=== PATIENT | male | born 1960 | race Caucasian/White ===

== ENCOUNTER 2016-08-07 13:04 | Emergency (ER) | payer BC ==
[2016-08-07 13:30] VITALS: BP 154/103
--- NOTE | 2016-08-07 14:08 | UC ---
Respiratory Complaint HPI - HPI Summary HPI Summary: Cough and chest congestion starting 3 days ago. Fever up to 101F and chills started yesterday, out of work yesterday and today. Has pain in front of chest and in head when he coughs. Some wheezing. - History of Current Complaint Chief Complaint: UCRespiratory Stated Complaint: COUGH,CONGESTION,FEVER Time Seen by Provider: 08/07/16 13:33 Hx Obtained From: Patient Onset/Duration: Gradual Onset, Lasting Days Timing: Constant Severity Initially: Mild Severity Currently: Moderate Character: Cough: Nonproductive Aggravating Factors: Deep Breaths Alleviating Factors: Nothing Associated Signs And Symptoms: Positive: Fever, Chills, Wheezing - Allergies/Home Medications Allergies/Adverse Reactions: Allergies Allergy/AdvReac Type Severity Reaction Status Date / Time Ciprofloxacin [From Cipro] Allergy Mild See Comment Verified 08/07/16 13:30 Metronidazole [From Flagyl] Allergy Mild See Comment Verified 08/07/16 13:30 Sulfa Antibiotics Allergy Mild Hives Verified 08/07/16 13:30 iodine dye Allergy Mild Hives Uncoded 08/07/16 13:30 PMH/Surg Hx/FS Hx/Imm Hx Cardiovascular History Of: Reports: Cardiac Disorders - Pulmonary emboli Respiratory History Of: Reports: Asthma - Surgical History Surgical History: Yes Surgery Procedure, Year, and Place: deviated septum,right inguinal hernialeft , foot bone spur and revision - Family History Known Family History: Positive: Hypertension - Social History Occupation: Employed Full-time Alcohol Use: Rare Alcohol Amount: 1-2 beers Substance Use Type: None Smoking Status (MU): Never Smoked Tobacco Have You Smoked in the Last Year: No Review of Systems Constitutional: Fever, Chills, Fatigue Skin: Negative Eyes: Negative ENT: Negative Respiratory: Cough Cardiovascular: Negative Gastrointestinal: Negative Genitourinary: Negative Motor: Negative Neurovascular: Negative Musculoskeletal: Negative Neurological: Negative Psychological: Negative All Other Systems Reviewed And Are Negative: Yes Physical Exam Triage Information Reviewed: Yes Appearance: Well-Appearing, No Pain Distress, Well-Nourished Vital Signs: Initial Vital Signs Temp 97.9 F 08/07/16 13:26 Pulse 107 08/07/16 13:26 Resp 22 08/07/16 13:26 BP 154/103 08/07/16 13:26 Pulse Ox 100 08/07/16 13:26 Vital Signs Reviewed: Yes Eye Exam: Normal Eyes: Positive: Conjunctiva Clear ENT: Positive: Normal ENT inspection, Hearing grossly normal, Pharynx normal, Nasal congestion, TMs normal - with fluid behind TMs. Negative: Tonsillar swelling, Tonsillar exudate Dental Exam: Normal Neck exam: Normal Neck: Positive: Supple, Nontender, No Lymphadenopathy Respiratory Exam: Normal Respiratory: Positive: Chest non-tender, Lungs clear, Normal breath sounds, No respiratory distress, No accessory muscle use Cardiovascular: Positive: No Murmur, Tachycardia Musculoskeletal Exam: Normal Neurological Exam: Normal Psychological Exam: Normal Skin Exam: Normal UC Diagnostic Evaluation - Laboratory O2 Sat by Pulse Oximetry: 100 Respiratory Course/Dx - Differential Dx/Diagnosis Provider Diagnoses: acute bronchitis Discharge - Discharge Plan Condition: Stable Disposition: HOME Prescriptions: Albuterol HFA INHALER* [Ventolin HFA Inhaler*] 1 - 2 puff INH Q4H PRN #1 mdi PRN Reason: wheeze, cough Guaifenesin-Codeine [Guaiatussin AC] 5 - 10 ml PO Q6H #240 ml MDD 40mL Patient Education Materials: Acute Bronchitis (ED) Forms: *Work Release Referrals: Roshni Romero MD [Primary Care Provider] - If Needed Additional Instructions: We used to think antibiotics were necessary to treat bronchitis, but studies have shown that respiratory viruses cause the disease in the vast majority of cases. Like head colds, most cases of bronchitis get better without antibiotics. We may prescribe antibiotics if we believe bacteria are damaging your airways, or if there's high risk the bronchitis will worsen into pneumonia (such as for individuals with emphysema or other lung disease). Increase your fluid intake. A cool mist humidifier may make your lungs more comfortable. An expectorant (cough medicine that loosens phlegm) can help. If you smoke, STOP!!! Recovery from bronchitis can be somewhat slow, but you should not have any significant worsening or new fevers. As long as you can breathe easily and you continue to have steady improvement, it is not important how many days it takes you to get better. Call or return if you develop increasing fever, shortness of breath, chest pain , bloody sputum, or otherwise worsen. If you have not improved at all after several days, contact your primary care physician or return here. INHALED BRONCHODILATORS: You have received a prescription for an inhaled bronchodilator -- a medication which stimulates the airways in the lung to dilate. This improves the flow of air in asthma, bronchitis, and emphysema. These medicines have some similarity to adrenaline, and can cause similar side effects: shakiness, racing heart, and a sense of nervousness. These side effects can be reduced with the use of a spacer and usually decrease with time. Use 1-2 puffs up to every 4 hours as needed for wheezing or tightness in your chest. It may be helpful to use preventatively, such as before bedtime or before going outside into cold air. IF YOU FIND THAT YOU ARE CONSISTENTLY NEEDING THE INHALER MORE THAN 6 TIMES PER DAY, PLEASE CALL OR RETURN FOR FURTHER EVALUATION. COUGH-SUPPRESSANT & EXPECTORANT MEDICATION FOR SLEEPING ONLY: You are to use a cough medication as needed for relief of NIGHTTIME/ BEDTIME symptoms. This medicine is a combination of an expectorant (to make the mucous thinner and more easily "coughed up") and a cough suppressant (to reduce the frequency of coughing). The cough-suppressant medicine is related to narcotics. You may experience mild nausea and sleepiness. Some patients who are very sensitive to narcotics may have stomach pain from this medicine. Taking the medicine with food reduces these side effects. Do not drive or work with machinery until you know how this medicine affects you. The expectorant should have no side effects. Call your doctor if you develop shortness of breath, hives, rash, itching, lightheadedness, or severe nausea and vomiting.
--- NOTE | 2016-08-07 14:39 | RAD ---
HISTORY: Cough fever COMPARISONS: May 04, 2014 VIEWS: 2: Frontal dual-energy and lateral views of the chest. FINDINGS: CARDIOMEDIASTINAL SILHOUETTE: The cardiomediastinal silhouette is normal. AUSTIN: The austin are normal. PLEURA: The costophrenic angles are sharp. No pleural abnormalities are noted. LUNG PARENCHYMA: The lungs are clear. ABDOMEN: The upper abdomen is clear. There is no subphrenic gas. BONES AND SOFT TISSUES: No bone or soft tissue abnormalities are noted. OTHER: None. IMPRESSION: NO ACTIVE CARDIOPULMONARY DISEASE.
== END 2016-08-07 14:53 | disposition home or self-care (01) ==
LOC: UCEAST 13:04
DX: J20.9 Acute bronchitis, unspecified (principal); Z86.711 Personal history of pulmonary embolism; Z87.09 Personal history of other diseases of the respiratory system; Z88.1 Allergy status to other antibiotic agents
CPT/HCPCS: 71020; 87502; 99212; G0463

== ENCOUNTER 2016-08-17 10:16 | Emergency (ER) | payer BC ==
--- NOTE | 2016-08-17 10:44 | ED ---
Abdominal Pain/Male - HPI Summary HPI Summary: Patient presents for delayed evaluation of left upper abdominal pain. Feels similar to previous episodes of diverticulitis based on character, but less severe. The pain is sharp/cramping and crescendo throughout the day. Not food related. Resolves about an hour after lying down for bedtime. His GI doctor, Dr. Townsend, prescribed both flagyl and cipro 7 days ago without relief. Also taken docusate and senna without relief. Has had several hard pellet like stools, after using both medications. Had two fevers of 101F before starting antibiotics, but none since. Denies recent sick contacts, new or bad foods, cough/congestion, systemic symptoms. No specific aggrav factors. - History of Current Complaint Chief Complaint: EDAbdPain Stated Complaint: UPPER LT ABD PAIN Time Seen by Provider: 08/17/16 10:29 Hx Obtained From: Patient Onset/Duration: Gradual Onset, Lasting Weeks, Still Present Timing: Intermittent Severity Initially: Moderate Severity Currently: None Pain Intensity: 3 Location: Discrete At: LLQ Radiates: No Character: Cramping Aggravating Factor(s): Nothing Alleviating Factor(s): Nothing Associated Signs And Symptoms: Positive: Constipation. Negative: Diaphoresis, Fever, Blood in Stool, Urinary Symptoms, Decreased Appetite, Nausea, Vomiting, Diarrhea - Risk Factors Testicular Torsion: Negative Cardiac Risk Factors: Negative - Allergies/Home Medications Allergies/Adverse Reactions: Allergies Allergy/AdvReac Type Severity Reaction Status Date / Time Iodixanol [From Visipaque] Allergy Severe Swelling Verified 08/17/16 13:18 Of Face,Lips,& Throat Sulfa Antibiotics Allergy Mild Hives Verified 08/17/16 10:28 iodine dye Allergy Mild Hives Uncoded 08/17/16 10:28 PMH/Surg Hx/FS Hx/Imm Hx Respiratory History: Reports: Hx Asthma - Surgical History Surgery Procedure, Year, and Place: deviated septum,right inguinal hernialeft , foot bone spur and revision Infectious Disease History: No Infectious Disease History: Reports: Hx of Known/Suspected MRSA - left elbow Denies: Hx Clostridium Difficile, Hx Hepatitis, Hx Shingles, Hx Tuberculosis , Hx Known/Suspected VRE, Hx Known/Suspected VRSA, History Other Infectious Disease, Traveled Outside the [place] in Last 30 Days - Family History Known Family History: Positive: Hypertension - Social History Alcohol Use: Rare Alcohol Amount: 1-2 beers Substance Use Type: Reports: None Smoking Status (MU): Never Smoked Tobacco Have You Smoked in the Last Year: No Review of Systems Constitutional: Negative Negative: Fever, Chills Cardiovascular: Negative Negative: Chest Pain Respiratory: Negative Negative: Shortness Of Breath Positive: Abdominal Pain. Negative: Vomiting, Diarrhea, Nausea Genitourinary: Negative Positive: no symptoms reported Skin: Negative All Other Systems Reviewed And Are Negative: Yes Physical Exam Triage Information Reviewed: Yes Vital Signs On Initial Exam: Initial Vitals Temp Pulse Resp BP Pulse Ox 98.6 F 86 15 157/117 100 08/17/16 10:18 08/17/16 10:18 08/17/16 10:18 08/17/16 10:18 08/17/16 10:18 Vital Signs Reviewed: Yes Appearance: Positive: Well-Appearing, No Pain Distress, Well-Nourished. Negative: Ill-Appearing Skin: Positive: Warm, Skin Color Reflects Adequate Perfusion, Dry Head/Face: Positive: Normal Head/Face Inspection Eyes: Positive: Normal ENT: Positive: Normal ENT inspection Respiratory/Lung Sounds: Positive: Clear to Auscultation, Breath Sounds Present Cardiovascular: Positive: Normal, RRR, Pulses are Symmetrical in both Upper and Lower Extremities Abdomen Description: Positive: Soft, Guarding, Other: - Diffuse ttp. No rebound or guarding.. Negative: CVA Tenderness (R), CVA Tenderness (L) Bowel Sounds: Positive: Hypoactive Musculoskeletal: Positive: Normal, Strength/ROM Intact Neurological: Positive: Normal, Sensory/Motor Intact, Alert, Oriented to Person Place, Time, CN Intact II-III Diagnostics - Vital Signs Vital Signs Temp Pulse Resp BP Pulse Ox 08/17/16 10:18 98.6 F 86 15 157/117 100 - Laboratory Result Diagrams: 08/17/16 10:58 08/17/16 10:58 Lab Statement: Any lab studies that have been ordered have been reviewed, and results considered in the medical decision making process. Abdominal Pain Fem Course/Dx - Diagnoses Differential Diagnosis/HQI/PQRI: Constipation, Diverticulitis, Other - Primary concern for constipation from the recent codeine with tessalon perles vs atypical diverticulitis since milder than previous diverticulitis and site of pain. 13:44p Case discussed with Dr. Keyon Ornelas, patient's GI physician, who after reviewing the CT and labwork agreed with the plan of care and PCP and GI FU. Provider Diagnoses: Abdominal pain Discharge - Discharge Plan Condition: Good Disposition: HOME Prescriptions: Dicyclomine CAP* [Bentyl CAP*] 10 mg PO TID PRN #10 cap MDD 4 PRN Reason: Abdominal Cramping Ondansetron TAB* [Zofran Tab*] 4 mg PO Q6H PRN #10 tab PRN Reason: Nausea Patient Education Materials: Abdominal Pain (ED) Referrals: Roshni Romero MD [Primary Care Provider] - If Needed Nura Ornelas MD [Medical Doctor] - If Needed
[2016-08-17 11:16] LABS: Hematocrit 42 % (42-52); Hemoglobin 13.8 g/dl (14.0-18.0); Mean Corpuscular HGB Conc 33 g/dl (31-36); Mean Corpuscular Hemoglobin 27 pg (27-31); Mean Corpuscular Volume 83 fL (80-94); Mean Platelet Volume 8 um3 (7.4-10.4); Red Blood Count 5.05 10^6/ul (4.0-5.4); Red Cell Distribution Width 15 % (10.5-15); White Blood Count 8.1 10^3/ul (3.5-10.8)
[2016-08-17 11:20] LABS: Urine Bacteria Absent (Absent); Urine Bilirubin Negative (Negative); Urine Glucose Negative (Negative); Urine Nitrite Negative (Negative)
[2016-08-17 11:27] LABS: Albumin 4.5 g/dL (3.2-5.2); BUN/Creatinine Ratio 10.3 (8-20); Calcium 9.5 mg/dL (8.6-10.3); EGFR African American 76.4 (>60); EGFR Non-African American 59.4 (>60); Potassium 3.9 mmol/L (3.5-5.0); Total Bilirubin 0.6 mg/dL (0.2-1.0); Total Protein 7.5 g/dL (6.4-8.9)
[2016-08-17] MEDS ORDERED: Iodixanol* (CONTRAST) 320 MG/ML 100 ML SDV IV ONE (11:52)
[2016-08-17] MEDS ORDERED: methylPREDNISolone 125 MG* 2 ML VIAL ONE (12:19)
[2016-08-17] MEDS ORDERED: diPHENhydraMINE IV* 50 MG/ML 1 ml VIAL (BENADRYL) ONE (12:19)
[2016-08-17] MEDS ORDERED: methylPREDNISolone 125 MG* 2 ML VIAL IV ONE (12:24)
[2016-08-17] MEDS ORDERED: diPHENhydraMINE IV* 50 MG/ML 1 ml VIAL (BENADRYL) IV ONE (12:24)
--- NOTE | 2016-08-17 12:57 | RAD ---
CLINICAL HISTORY: Abdominal pain COMPARISON: July 06, 2015 TECHNIQUE: Multiple contiguous axial CT scans were obtained of the abdomen and pelvis after the administration of intravenous contrast. Coronal and sagittal multiplanar reformations are submitted for review. Oral contrast was not administered. Delayed images were obtained through the abdomen FINDINGS: LUNG BASES: The lung bases are clear. LIVER: There are several low-attenuation hepatic parenchymal lesions consistent with hepatic cysts, stable from the previous examination. BILE DUCTS: There is no intrahepatic or extrahepatic biliary dilatation. GALLBLADDER: The gallbladder is normal, without pericholecystic inflammatory change. PANCREAS: The pancreas is normal, without mass or ductal dilatation. SPLEEN: Normal in size and appearance. UPPER GI TRACT: Evaluation of the gastrointestinal tract is limited by incomplete gastric distention. The upper GI tract is unremarkable. SMALL BOWEL AND MESENTERY: The small bowel is normal in contour, course, and caliber. There is no obstruction or dilatation. COLON: There are multiple diverticula of the descending and sigmoid colon. There is no pericolonic inflammatory change. ADRENALS: Normal bilaterally. KIDNEYS: The kidneys are normal in shape, size, contour, and axis. There is no hydronephrosis or nephrolithiasis. BLADDER: The bladder is smooth in contour. PELVIC ORGANS: The prostate is diffusely enlarged. The seminal vesicles are symmetric. AORTA: The aorta is normal. IVC: Unremarkable LYMPH NODES: There is no lymphadenopathy by size criteria. ABDOMINAL WALL: There is no evidence for abdominal wall hernia. BONES AND SOFT TISSUES: Degenerative changes are noted along the spine OTHER: None IMPRESSION: 1. DIVERTICULOSIS WITHOUT SIGNIFICANT PERICOLONIC INFLAMMATORY CHANGE TO SUGGEST ACUTE DIVERTICULITIS. 2. ENLARGED PROSTATE.
[2016-08-17 14:01] VITALS: BP 150/84
== END 2016-08-17 14:01 | disposition home or self-care (01) ==
LOC: ED 10:16
DX: R10.12 Left upper quadrant pain (principal); K57.90 Diverticulosis of intestine, part unspecified, without perforation or abscess without bleeding
CPT/HCPCS: 36415; 74177; 80053; 81003; 81015; 83690; 85025; 87086; 96374; 96375; 99283; J1200; J2930; Q9967

== ENCOUNTER 2016-11-15 11:14 | Day surgery (SDC) | payer BC ==
[~2016-11-15 11:14] MED LIST: Buffered Lidocaine 1% SYRIN* 3 ML/SYR SYRINGE INTRADERM ONE
[2016-11-15] MEDS ORDERED: fentaNYL* 50 MCG/ML 2 ML VIAL (100 MCG VIAL) ONE (13:18)
[2016-11-15] MEDS ORDERED: Midazolam* 1 MG/ML 2 ML VIAL (2 MG) ONE (13:18)
[2016-11-15] MEDS ORDERED: Famotidine IV* 10 MG/ML 2 ML (20 mg) ONE (13:19)
[2016-11-15] MEDS ORDERED: Dexamethasone IV* 4 MG/ML 1 ML (4 MG) ONE (13:19)
[2016-11-15] MEDS ORDERED: Propofol* 10 MG/ML 20 ML BTL IV PUSH ONE ×2 (13:19→14:01)
[2016-11-15] MEDS ORDERED: KETAMINE HCL* 50 MG/ML 10 ML VIAL ONE (13:19)
[2016-11-15] MEDS ORDERED: Lidocaine 2% PF * 5 ML VIAL ONE (13:19)
[2016-11-15] MEDS ORDERED: diPHENhydraMINE IV* 50 MG/ML 1 ml VIAL (BENADRYL) ONE (13:34)
[2016-11-15 15:11] VITALS: BP 145/99
--- NOTE | 2016-11-16 03:52 | PRO ---
DATE OF PROCEDURE: 11/15/16 [facility] PROCEDURE: Colonoscopy with biopsies. MEDICINES USED: IV propofol provided by Anesthesiology. NARRATIVE: Mr. Land is a 55-year-old gentleman who, about 3 years ago, had a colonoscopy where a polyp was removed. He was instructed to come back in this timeframe. DESCRIPTION OF PROCEDURE: After the procedure was discussed with the patient, risks and benefits were outlined, written consent was obtained. The patient was placed in the left lateral decubitus position and a rectal exam was performed. The rectal exam was normal without any palpable abnormality. At that point, colonoscopy was carried out. A video adult flexible colonoscope was inserted anally and advanced very carefully into the cecum. The cecum was identified by the appendiceal orifice and the ileocecal valve. The quality of the prep overall was fair to good. There was some murky fluid and particulate material seen throughout the colon; but I do believe, with extensive irrigation and suctioning, views were good. The patient tolerated the procedure well and there were no immediate complications. FINDINGS: Colonoscopy into the cecum was successful. At that level, the colonoscope was slowly withdrawn and careful inspection was carried out. A total of 4 small polyps were identified, there were 3 in the hepatic flexure region and 1 in the transverse colon, they were all removed with the jumbo biopsy forceps. Additionally, sigmoid diverticulosis was noted. No other mucosal abnormality was detected. The submucosal vascular pattern was normal. The rectum was viewed both in the forward view and retroflex manner and was normal. CONCLUSION: Four small polyps (removed), sigmoid diverticulosis; otherwise, normal colonoscopy into the cecum. RECOMMENDATION: I will certainly review the biopsy results of these small polyps. I would recommend a followup colonoscopy in 5 years. CC: Dulec Tobin MD* [id number]/[facility] #: [id number] [facility]
== END 2016-11-15 15:20 | disposition home or self-care (01) ==
LOC: OR 11:14
PROVIDERS: ATTEND Internal Medicine Gastroenterology
DX: Z12.11 Encounter for screening for malignant neoplasm of colon (principal); D12.3 Benign neoplasm of transverse colon; J45.909 Unspecified asthma, uncomplicated
CPT/HCPCS: 36415; 86703; 86803; 88305; J1100; J1200; J2250; J2704; J3010

== ENCOUNTER 2017-07-20 12:03 | Emergency (ER) | payer BC ==
[2017-07-20 12:10] VITALS: BP 180/95
[2017-07-20] MEDS ORDERED: Aspirin TAB* 325 MG PO ONE (15:43)
[2017-07-20] MEDS ORDERED: Ketorolac INJ* 60 MG/2 ML VIAL IM ONE (15:43)
--- NOTE | 2017-07-20 15:55 | ED ---
Back Pain - HPI Summary HPI Summary: 56 male presents to ED with complaints of lower back pain that began yesterday a few hours after shoveling his driveway. Patient states he has known "bulging discs" that are chronic and have been ongoing for the past couple of years. States he tweaks it every now and then and believes he did yesterday when shoveling. Took aleve and ibuprofen yesterday without relief. Also has been applying a heating pad with little relief. Has had similar symptoms with previous episodes. Admits to some tingling in left leg. Able to walk and bear weight although it exacerbates pain Admits to having spasms in his back when using legs at times. Denies bladder/bowel incontinence, saddle anesthesia and weakness. No other complaints. No abdominal pain or urinary complaints. No other known injuries. PMHx significant for IBS and intermittent GERD. Pain is worsened with movement/bending and use of lower extremities. - History of Current Complaint Chief Complaint: EDBackInjuryPain Stated Complaint: BACK Time Seen by Provider: 07/20/17 13:08 Hx Obtained From: Patient Onset/Duration: Sudden Onset, Lasting Days - 1, Still Present, Worse Since Onset/Duration: Started Days Ago - yesterday, Traumatic, Still Present Timing: Constant Back Pain Location: Is Discrete @ - lower lumbar spine Severity Initially: Moderate Severity Currently: Severe Pain Intensity: 10 Pain Scale Used: 0-10 Numeric Character: Sharp, Aching, Spasmodic Aggravating Symptom(s): Movement, Lifting, Bending, Walking Alleviating Symptom(s): Rest, Position, Heat, Nothing Associated Signs And Symptoms: Positive: Numbness, Tingling - left, Pain with Weight Bearing. Negative: Swelling, Redness, Bruising, Fever, Weakness, Abdominal Pain, Bladder Incontinence, Bowel Incontinence - Risk Factors AAA Risk Factors: Negative TAD Risk Factors: Negative Cauda Equina Risk Factors: Negative Epidural Abscess Risk Factors: Negative - Allergies/Home Medications Allergies/Adverse Reactions: Allergies Allergy/AdvReac Type Severity Reaction Status Date / Time Iodixanol [From Visipaque] Allergy Severe Swelling Verified 11/15/16 11:32 Of Face,Lips,& Throat.anaphylactic Sulfa Antibiotics Allergy Mild Hives Verified 11/15/16 11:32 Shellfish Allergy Allergy anaphylacti Verified 11/15/16 11:32 c iodine dye Allergy Severe Hives, Uncoded 11/15/16 11:32 anaphylactic PMH/Surg Hx/FS Hx/Imm Hx Endocrine/Hematology History: Denies: Hx Diabetes Cardiovascular History: Denies: Hx Hypertension Respiratory History: Reports: Hx Asthma - A CHILD X 1 ATTACK-NONE SINCE, Hx Pulmonary Embolism - AND DVT IN 2009 GI History: Reports: Hx Gastroesophageal Reflux Disease - ON MEDICATION FOR, Hx Irritable Bowel, Other GI Disorders - DIVERTICULOSIS History: Denies: Hx Renal Disease Musculoskeletal History: Reports: Hx Bursitis - LEFT HIP, Hx Tendonitis - KNEES Sensory History: Reports: Hx Contacts or Glasses - GLASSES Denies: Hx Hearing Aid Opthamlomology History: Reports: Hx Contacts or Glasses - GLASSES Psychiatric History: Reports: Hx Depression - NO MEDICATION FOR AT THIS TIME - Surgical History Surgery Procedure, Year, and Place: deviated septum,right inguinal hernia. left foot bone spur and revision. ENDOSCOPIES AND COLONOSCOPY Hx Anesthesia Reactions: No - Immunization History Immunizations Up to Date: Yes Infectious Disease History: No Infectious Disease History: Reports: Hx of Known/Suspected MRSA - left elbow Denies: Hx Clostridium Difficile, Hx Hepatitis, Hx Shingles, Hx Tuberculosis , Hx Known/Suspected VRE, Hx Known/Suspected VRSA, History Other Infectious Disease, Traveled Outside the [place] in Last 30 Days - Family History Known Family History: Positive: Hypertension - Social History Alcohol Use: Weekly Alcohol Amount: 1 beer Substance Use Type: Reports: None Smoking Status (MU): Never Smoked Tobacco Have You Smoked in the Last Year: No Review of Systems Constitutional: Negative Cardiovascular: Negative Respiratory: Negative Gastrointestinal: Negative Genitourinary: Negative Positive: Arthralgia, Myalgia, Decreased ROM - low back Skin: Negative Positive: Paresthesia - left LE All Other Systems Reviewed And Are Negative: Yes Physical Exam Triage Information Reviewed: Yes Vital Signs On Initial Exam: Initial Vitals Temp Pulse Resp BP Pulse Ox 97.7 F 72 16 180/95 100 07/20/17 12:05 07/20/17 12:05 07/20/17 12:05 07/20/17 12:05 07/20/17 12:05 Vital Signs Reviewed: Yes Appearance: Positive: Well-Appearing, Well-Nourished, Pain Distress - moderate- severe Skin: Positive: Warm, Skin Color Reflects Adequate Perfusion, Dry. Negative: Cold, Numb, Erythema @ Eyes: Positive: Normal ENT: Positive: Hearing grossly normal Neck: Positive: Supple Respiratory/Lung Sounds: Positive: Clear to Auscultation, Breath Sounds Present. Negative: Rales, Rhonchi, Wheezes Cardiovascular: Positive: Normal, RRR, Pulses are Symmetrical in both Upper and Lower Extremities. Negative: IRR, Murmur Abdomen Description: Positive: Nontender, Soft Bowel Sounds: Positive: Present Musculoskeletal: Positive: Normal, Strength/ROM Intact, Pain @ - on palpation and with movement of L2-L5 no obvious deformity, ecchymosis, erythema or crepitus, Other - normal strength of bilateral LE however, does cause discomfort. Negative: Limited @, Interruption @, Abnormal @ Neurological: Positive: Normal, Sensory/Motor Intact, Alert, Oriented to Person Place, Time, CN Intact II-III, Reflexes Intact, NV Bundle Intact Distally, Normal Gait - hunched over holding lower back - Kushal Coma Scale Coma Scale Total: 15 Diagnostics - Vital Signs Vital Signs Temp Pulse Resp BP Pulse Ox 07/20/17 12:05 97.7 F 72 16 180/95 100 - Laboratory Lab Statement: Any lab studies that have been ordered have been reviewed, and results considered in the medical decision making process. Back Pain Course/Dx - Course Course Of Treatment: No imaging required due to patient having chronic low back issues with an acute injury when shoveling yesterday, appears to have suffered a strain. given toradol while in ED. has not taken any other medication today. Patient was driving home and therefore given muscle relaxer to take at home. being prednisone and naproxen tomorrow. encouraged lidoderm patch and continuing heating pads. stretches, rest and PT. Follow up PCP. Aware of worsening signs and symptoms to watch out for. No imaging appeared necessary at this time due to no trauma concerning bony structures of spine. Normal PE findings. Normal vitals, elevated BP patient in pain and to recheck with PCP in 2 weeks, asymptomatic. - Diagnoses Differential Diagnosis/HQI/PQRI: Positive: Herniated Disc, Strain, Sprain Provider Diagnoses: Lumbosacral strain, Low back pain Discharge - Discharge Plan Condition: Stable Disposition: HOME Prescriptions: Diazepam TAB(*) [Valium TAB(*)] 2 mg PO TID PRN #15 tab MDD 3 PRN Reason: Spasms Naproxen TAB* [Naprosyn 375 mg TAB*] 375 mg PO BID PRN #30 tab PRN Reason: Pain predniSONE TAB* [Deltasone TAB*] 20 mg PO DAILY #3 tab Patient Education Materials: Low Back Strain (ED), Acute Low Back Pain (ED), Lumbar Radiculopathy (ED) Referrals: Dulce Tobin MD [Primary Care Provider] - [facility] [place],PT [Medical Doctor] - Additional Instructions: Take prescribed medication as directed as needed starting tomorrow. You may only take muscle relaxer, valium, today as needed. You may also take tylenol for breakthrough pain today if needed. Do not drive while taking valium. Take naproxen starting tomorrow, with food to avoid upset stomach and GERD. Recommend taking prednisone in the morning to refrain from having trouble sleeping, starting tomorrow. Continue heating pads. Lidoderm patches as needed, sold over the counter. Recommend physical therapy. Any new or worsening symptoms please seek medical attention promptly. Follow up with PCP and have BP rechecked as it was high today, within 2 weeks.
[2017-07-20] MEDS ORDERED: Acetaminophen TAB* 325 MG PO ONE (16:01)
== END 2017-07-20 16:07 | disposition home or self-care (01) ==
LOC: ED 12:03
DX: S39.012A Strain of muscle, fascia and tendon of lower back, initial encounter (principal); X50.0XXA Overexertion from strenuous movement or load, initial encounter; Y93.H1 Activity, digging, shoveling and raking; Y92.89 Other specified places as the place of occurrence of the external cause; Z88.2 Allergy status to sulfonamides
CPT/HCPCS: 96374; 99282; J1885

== ENCOUNTER → 2018-06-02 07:11 | Day surgery (SDC) | payer BC ==
[~2018-06-02 07:11] MED LIST changes: +Buffered Lidocaine 0.9% SYRIN* 5 ML/SYR SYRINGE INTRADERM ONE; +Buffered Lidocaine 0.9% SYRIN* 5 ML/SYR SYRINGE ONE; -Buffered Lidocaine 1% SYRIN* 3 ML/SYR SYRINGE INTRADERM ONE; +Bupivacaine 0.5% SDV PF* 30ML VIAL ONE; +DiMENhydriNATE IV* 50 MG/ML VIAL IV PUSH PRN; +HYDROcodone/ACETAMIN 5-325 MG* 1 TAB PO PRN; +Lidocaine 2% PF * 5 ML VIAL ONE; +Lidocaine 2% PF* 10 ML AMP ONE; +Midazolam* 1 MG/ML 5 ML VIAL (5 MG) ONE; +Morphine VIAL* 10 MG/ML 1 ML VIAL ONE; +Naloxone* 0.4 MG/ML 1 ML VIAL IV PRN; +Ondansetron INJ* 2 MG/ML VIAL ONE; +Propofol* 10 MG/ML 20 ML BTL IV PUSH ONE; +ceFAZolin 2 GM PREMIX in ORs 2 GM/50 ML BAG IVPB ONE; +fentaNYL* 50 MCG/ML 2 ML VIAL (100 MCG VIAL) IV PRN; +fentaNYL* 50 MCG/ML 2 ML VIAL (100 MCG VIAL) ONE; +oxyCODONE TAB* 5 MG TAB PO PRN
[2018-06-02 11:46] VITALS: BP 159/94
--- NOTE | 2018-06-03 09:16 | OP ---
DATE OF OPERATION: 06/02/18 - SDS DATE OF : 60 ATTENDING SURGEON: Claude Nguyen MD PRE-OP DIAGNOSIS: Soft tissue mass, plantar aspect, right great toe. POST-OP DIAGNOSIS: Soft tissue mass, plantar aspect, right great toe; probable ganglion. OPERATIVE PROCEDURE: Excision of mass, right great toe. DESCRIPTION OF PROCEDURE: The patient was taken to the operating room where a local anesthetic was instilled around the great toe. With the ankle Esmarch inflated, I made a V-shaped incision apex medial just to the medial aspect of this plantar rubbery mass. The mass itself was somewhat adherent to the dermis tissue, so I unroofed the mass and there was some blood syrupy fluid inside, it was consistent with a ganglion. I did excise away the more deep half of the mass, which appeared to articulate with the FHL sheath. I irrigated this thoroughly sending what I could of the mass taking care not to invade any of the plantar nerve structures. Closure consisted of a 3-0 Vicryl subcu and an interrupted 4-0 nylon for the skin and a compression dressing applied. [id number]/[facility] #: [id number] [facility]
== END | disposition home or self-care (01) ==
LOC: OR 07:11
PROVIDERS: ATTEND Orthopaedic Surgery
DX: M67.471 Ganglion, right ankle and foot (principal); I10 Essential (primary) hypertension; F41.8 Other specified anxiety disorders; Z86.718 Personal history of other venous thrombosis and embolism
CPT/HCPCS: 88304; J0690; J2001; J2250; J2270; J2405; J2704; J3010

== ENCOUNTER 2018-11-14 08:00 | Inpatient (IN) | payer BC ==
[2018-11-14] MEDS ORDERED: NS 0.9% 1000 ML** 1,000 ML IV ONE ×3 (08:15→08:28)
--- NOTE | 2018-11-14 08:17 | ED ---
Abdominal Pain/Male - HPI Summary HPI Summary: A 57 y/o M who is afebrile presents to ED c/o diffuse suprapubic abd pain onset this AM. His sx began two days ago with excess gas. He feels this is likely diverticulitis which he has had 5-6x previously, with the last episode being 2-3 years ago. Associated sx: bloating, bowel urgency. Denies: n/v, bloody stool. Hes unsure what triggered it. - History of Current Complaint Chief Complaint: EDAbdPain Stated Complaint: POSS DIVERTICULITIS PER PT Time Seen by Provider: 11/14/18 08:02 Hx Obtained From: Patient Onset/Duration: Gradual Onset, Lasting Days, Still Present Timing: Constant Severity Initially: Moderate Severity Currently: Severe Pain Intensity: 8 Pain Scale Used: 0-10 Numeric Location: Suprapubic Character: Cramping Associated Signs And Symptoms: Positive: Other - pos: bloating, gassy. Negative : Blood in Stool, Nausea, Vomiting - Allergies/Home Medications Allergies/Adverse Reactions: Allergies Allergy/AdvReac Type Severity Reaction Status Date / Time iodine Allergy Hives Verified 11/14/18 08:07 shellfish derived Allergy anaphylaxis Verified 11/14/18 08:07 Sulfa (Sulfonamide Allergy Hives Verified 11/14/18 08:07 Antibiotics) contrast dye Allergy Anaphylatic Uncoded 06/02/18 07:40 Shock Home Medications: Home Medications Azelastine HCl [Azelastine Hydrochloride] 0.1 % BOTH NARES BID 11/14/18 [ History Confirmed 11/14/18] Cyclobenzaprine TAB* [Flexeril 10 MG TAB*] 10 mg PO BEDTIME PRN 11/14/18 [ History Confirmed 11/14/18] EPINEPHrine [Epipen] 0.3 mg INJ ONCE PRN 11/14/18 [History Confirmed 11/14/18] Ibuprofen TAB* [Advil TAB*] 600 mg PO TID PRN 11/14/18 [History Confirmed ] Lisinopril TAB* [Prinivil TAB*] 5 mg PO DAILY 11/14/18 [History Confirmed ] Melatonin (NF) 3 mg PO BEDTIME 11/14/18 [History Confirmed 11/14/18] PMH/Surg Hx/FS Hx/Imm Hx Previously Healthy: No Endocrine/Hematology History: Denies: Hx Diabetes Cardiovascular History: Reports: Hx Hypertension - off meds now Denies: Other Cardiovascular Problems/Disorders Respiratory History: Reports: Hx Asthma - A CHILD X 1 ATTACK-NONE SINCE, Hx Pulmonary Embolism - AND DVT IN 2010, after surgery Denies: Other Respiratory Problems/Disorders GI History: Reports: Hx Gastroesophageal Reflux Disease - ON MEDICATION FOR, Hx Irritable Bowel, Other GI Disorders - DIVERTICULOSIS History: Denies: Hx Renal Disease Musculoskeletal History: Reports: Hx Bursitis - LEFT HIP, Hx Tendonitis - KNEES Sensory History: Reports: Hx Contacts or Glasses - GLASSES Denies: Hx Hearing Aid Opthamlomology History: Reports: Hx Contacts or Glasses - GLASSES Neurological History: Denies: Other Neuro Impairments/Disorders Psychiatric History: Reports: Hx Anxiety - meds, Hx Depression - meds - Surgical History Surgery Procedure, Year, and Place: deviated septum,1996. right inguinal hernia , 2000. left foot bone spur and revision, 2009 and 2011. 2017, left knee, [facility] Hx Anesthesia Reactions: No Infectious Disease History: No Infectious Disease History: Reports: Hx of Known/Suspected MRSA - left elbow Denies: Hx Clostridium Difficile, Hx Hepatitis, Hx Shingles, Hx Tuberculosis , Hx Known/Suspected VRE, Hx Known/Suspected VRSA, History Other Infectious Disease, Traveled Outside the [place] in Last 30 Days - Family History Known Family History: Positive: Hypertension, Diabetes Family History: CA, stroke - Social History Occupation: Employed Full-time Lives: With Family Alcohol Use: Weekly Alcohol Amount: 1 beer Hx Substance Use: No Substance Use Type: Reports: None Hx Tobacco Use: No Smoking Status (MU): Never Smoked Tobacco Have You Smoked in the Last Year: No Review of Systems Negative: Fever Positive: Abdominal Pain, Other - pos: bloating, gassy, bowel urgency. neg: bloody stool . Negative: Vomiting, Nausea All Other Systems Reviewed And Are Negative: Yes Physical Exam - Summary Physical Exam Summary: VITAL SIGNS: Reviewed. GENERAL: Patient is a well-developed and nourished male who is lying comfortable in the stretcher. Patient is not in any acute respiratory distress. HEAD AND FACE: Normocephalic and atraumatic. EYES: PERRLA, EOMI x 2, No injected conjunctiva. EARS: Hearing grossly intact. Ear canals and tympanic membranes are WNL. MOUTH: Oropharynx within normal limits. NECK: Supple, trachea is midline, no adenopathy, no JVD. CHEST: Symmetric, no tenderness at palpation LUNGS: Clear to auscultation bilaterally. No wheezing or crackles. CVS: RRR, S1 and S2 present, no murmurs or gallops appreciated. ABDOMEN: Soft. Bilateral lower abd tenderness. No signs of distention. Positive bowel sounds. No rebound, no guarding, and no masses palpated. No abdominal bruit or pulsations. EXTREMITIES: FROM in all major joints, no edema, no cyanosis or clubbing. NEURO: Alert and oriented x 3. No acute neurological deficits. Speech is normal. SKIN: Dry and warm Triage Information Reviewed: Yes Vital Signs On Initial Exam: Initial Vitals Temp Pulse Resp BP Pulse Ox 97.7 F 73 18 89/72 97 11/14/18 08:01 11/14/18 08:01 11/14/18 08:01 11/14/18 08:01 11/14/18 08:01 Vital Signs Reviewed: Yes Diagnostics - Vital Signs Vital Signs Temp Pulse Resp BP Pulse Ox 11/14/18 08:01 97.7 F 73 18 89/72 97 - Laboratory Result Diagrams: 11/14/18 08:40 11/14/18 08:40 Lab Statement: Any lab studies that have been ordered have been reviewed, and results considered in the medical decision making process. - CT A/P CT CT Interpretation Completed By: Radiologist Summary of CT Findings: IMPRESSION: DIVERTICULITIS WITHOUT LOCULATED FLUID COLLECTION TO SUGGEST ABSCESS. ED provider has reviewed this report. - EKG 0820 EKG Rhythm: Atrial Fibrillation - at 146 bpm with RVR. EKG Comparison: Other - Different from EKG on 05/04/2014. Summary of EKG Findings: Atrial fib at 146 bpm with RVR. 0912 EKG Rhythm: Atrial Fibrillation - at 106 bpm Summary of EKG Findings: No ST elevation. 1231 Cardiac Rate: NL - 74 bpm EKG Rhythm: Sinus Rhythm Summary of EKG Findings: No ST elevation. Re-Evaluation - Re-Evaluation 1 Re-Evaluation Time: 08:25 Change: Worse Comment: Rechecked heart, patient has developed irregular rate and rhythm. When questioned, patient reports having intermittent dizziness this AM. Abdominal Pain Male Course/Dx - Course Assessment/Plan: This patient is a 57-year-old male who presents to the emergency department with chief complaint of lower abdominal pain. He reports that he has history of diverticulitis and he presents like is another episode of diverticulitis.,. Pain is 6 out of 10, nonradiating, pressure-like pain. While the patient was in the ED the patient became tachycardic, I reexamined the heart and the patient has a regular rate and rhythm. We did an EKG shows an atrial fibrillation with RVR 146 bpm. Patients blood pressure is 98/62. Therefore, we placed the patient in a desk monitor, we obtained 2 IV accesses , he was given IV fluids boluses. I also order Cardizem due to the atrial fibrillation. Abdomen and pelvic CT impression: Diverticulitis without loculated fluid collection to the digits abscess. After the patient was given Cardizem and the heart rate decreased to about 98 bpm, the patient walked to the bathroom and his heart rate is now between 120-150. Patient was placed in a Cardizem drip. He was also placed in ciprofloxacin and Flagyl. I discuss my physical exam, findings and test results with Dr. Andre from the hospitalist services and he agrees to admit patient to his services. Patient is hemodynamically stable alert and oriented x 3. Dr. Toribio from cardiology came and consulted for the patient and he reports no cardioversion at this time. He recommends admission to the hospital services. - Diagnoses Provider Diagnoses: Diverticulitis, Atrial fibrillation with RVR - Provider Notifications Discussed Care Of Patient With: Kacie Montero - hospitalist Time Discussed With Above Provider: 10:25 Instructed by Provider To: Admit As Inpatient - Recommends consulting with cardiology. Consulted at 1107: Will admit pt, - Critical Care Time Critical Care Time: 75-104 min Discharge - Sign-Out/Discharge Documenting (check all that apply): Patient Departure - ADMIT Patient Received Moderate/Deep Sedation with Procedure: No - Discharge Plan Condition: Stable Disposition: ADMITTED TO [facility] - Billing Disposition and Condition Condition: STABLE Disposition: Admitted to [facility] - Attestation Statements Document Initiated by Scribe: Yes Documenting Scribe: Neo Moise Provider For Whom Scribe is Documenting (Include Credential): Dr. Henrique Garcia MD Scribe Attestation: I, Neo Moise, scribed for Dr. Henrique Garcia MD on 11/14/18 at 1827. Scribe Documentation Reviewed: Yes Provider Attestation: The documentation as recorded by the scribe, Neo Moise accurately reflects the service I personally performed and the decisions made by me, Dr. Henrique Garcia MD Status of Scribe Document: Viewed Consult Consult: 1100: Consulted with Dr. Toribio, cardio Does not recommend cardioversion at this time.
--- OUTSIDE RECORDS SUMMARY | 2018-11-14 08:21 | XMS REPORT | Continuity of Care Document ---
:1960 External Reference #:[id number] Author Name Sushila Buckley Care Team Providers Name Role Phone Dulce Tobin MD Primary Care Physician Unavailable Payers Date Identification Numbers Payment Provider Subscriber Policy Number: [id number] [facility] Jessica Land PayID: [id number] [address] [place] [address] Expires: 2010 Policy Number: [id number] 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 Tobacco Use Start: Unknown Never Smoked Cigarettes Smoking Status Reviewed: 10/24/18 Never Smoked Cigarettes ETOH Use Occasionally consumes 2 drinks per week alcohol Tobacco Use Start: Unknown Patient has never smoked Recreational Drug Use Never Used Drugs Exercise Type/Frequency Exercises regularly walking, limited by back pain Allergies, Adverse Reactions, Alerts Date Description Reaction Status Severity Comments 10/24/2018 Bactrim Active rash 10/24/2018 Iodinated Diagnostic Active respiratory reaction, Agents throat swelling 10/24/2018 Shellfish-derived Active itching Products 05/09/2017 NKDA Inactive Medications Medication Date Status Form Strength Qnty SIG Indications Ordering Provider Omeprazole Active Capsules 40mg 1 by Unknown 00 mouth every day Montelukast 00/00/00 Active Tablets 10mg 1 by Unknown Sodium 00 mouth every day Azelastine HCL Active Solution 137mcg/Sp 1 squirt Unknown (Nasal) 00 ray each nostril once a day Sertraline HCL Active Tablets 100mg 1 tablet Unknown 00 daily Alprazolam Active Tablets 0.25mg 1/2 to 1 Unknown 00 tablet as needed. max dose 1 tablet Cyclobenzaprine Active Tablets 10mg take 1 Unknown HCL 00 tab by mouth 2-3 times a day as needed Hyoscyamine Active Tablets 0.375mg take 1 Unknown Sulfate ER 00 ER 12HR tab by mouth every 12 hours as needed Epipen 2-Nelson Active Solution 0.3mg/0.3 use as Unknown 00 Auto-Inje ML directed ct Melatonin ER Active Tablets 3mg take one Unknown 00 ER tablet/ca psule by mouth at bedtime. for insomnia Ibuprofen Active Tablets 200mg 3 tabs by Unknown 00 mouth 3 times daily as needed for pain Vitamin C Active Capsules 500mg 1 by Unknown 00 mouth every day Naproxen Sodium Active Capsules 220mg 1 tab Unknown 00 twice a day as needed Tylenol Active Capsules 325mg 2 tablets Unknown 00 every 4 hours as needed for pain Oxycodone HCL 06/02/20 Hx Tablets 5mg 10tab 1 tab Claude 18 - s every 4-6 Patrick 06/11/20 hours as M.D. 18 needed for pain mdd 4 Astepro Hx Unknown - 04/21/20 18 Singulair Hx Unknown - 04/21/20 18 Levsin Hx Unknown - 04/21/20 18 Align Hx Capsules 4mg 1 by Unknown 00 - mouth 04/21/20 every day 18 Xanax Hx Unknown 00 - Unknown Lisinopril Hx Tablets 5mg 1 by Unknown 00 - mouth Unknown every day Medications Administered in Office Medication Date Status Form Strength Qnty SIG Indications Ordering Provider Depomedrol Administered Injection Joyce 40MG Fermin KingD. Depomedrol Administered Injection Joyce 40MG 017 Gustavo Lugo Immunizations Description No Information Available Vital Signs Date Vital Result Comment 10/24/2018 9:40am Height 76 inches 6'4" Weight 211.00 lb Heart Rate 95 /min BP Systolic 149 mmHg BP Diastolic 85 mmHg BMI (Body Mass Index) 25.7 kg/m2 07/17/2018 9:49am Height 76 inches 6'4" Weight 198.00 lb BP Systolic 118 mmHg BP Diastolic 78 mmHg Pain Level 3 BMI (Body Mass Index) 24.1 kg/m2 06/26/2018 9:32am Height 76 inches 6'4" Weight 198.00 lb Heart Rate 68 /min BP Systolic 126 mmHg BP Diastolic 74 mmHg Respiratory Rate 12 /min Pain Level 2 BMI (Body Mass Index) 24.1 kg/m2 06/19/2018 8:51am Height 76 inches 6'4" Heart Rate 64 /min BP Systolic 130 mmHg BP Diastolic 90 mmHg Body Temperature 97.2 F Pain Level 0 06/12/2018 8:31am Height 76 inches 6'4" Heart Rate 72 /min BP Systolic 130 mmHg BP Diastolic 88 mmHg Body Temperature 97.4 F Pain Level 0 05/22/2018 8:27am Height 76 inches 6'4" Weight 198.00 lb BP Systolic 142 mmHg BP Diastolic 92 mmHg Respiratory Rate 16 /min Body Temperature 96.1 F Pain Level 0 BMI (Body Mass Index) 24.1 kg/m2 04/22/2018 10:05am Height 76 inches 6'4" Weight 204.00 lb Heart Rate 72 /min BP Systolic 130 mmHg BP Diastolic 74 mmHg Respiratory Rate 18 /min Body Temperature 97.7 F Pain Level 3 BMI (Body Mass Index) 24.8 kg/m2 05/09/2017 9:59am Height 76 inches 6'4" Weight 241.00 lb BP Systolic 130 mmHg BP Diastolic 82 mmHg Body Temperature 96.4 F Pain Level 4 BMI (Body Mass Index) 29.3 kg/m2 12/29/2010 11:31am Height 76 inches 6'4" Weight 220.00 lb Heart Rate 82 /min BP Systolic 134 mmHg BP Diastolic 86 mmHg BMI (Body Mass Index) 26.8 kg/m2 Results Test Date Facility Test Result H/L Range Note Laboratory test 06/02/2018 [facility] Surgical SEE RESULT [address] [place] [address] [phone] 1 SEE RESULT BELOW Name: GORDO LAND Tan : [address]: Claude Nguyen MD Acct: [id number] Unit: [id number] AGE: 57 Location: OR Re06/02/18 SEX: M Status: [place] [facility] [place] SPEC: [id number] LENI: 06/02/18- [facility] DR: Claude Nguyen MD REQ: [id number] RECD: 06/02/18 STATUS: SOUT _ ORDERED: LEVEL 3 FINAL DIAGNOSIS Soft tissue, right foot, excision: -- Ganglion cyst. PRE-OPERATIVE DIAGNOSIS Right foot mass GROSS DESCRIPTION The specimen is received in formalin labeled, Mass Right Foot, and consists of two hernandez-pink irregular fibromembranous tissue fragments with adherent yellow fat measuring 0.7 x 0.6 x 0.3 cm and 1.4 x 0.5 x 0.3 cm which are submitted entirely in one cassette. Signed by and Reported on: Cristhian Leung MD 11/29 1614 END OF REPORT DEPARTMENT OF PATHOLOGY, [address] [place] [address] Cristhian Leung M.D. Director [facility] # [id number] Procedures Date Code Description Status 06/02/2018 29907 Excision Lesion Toes (Cyst/Ganglion) Completed 05/09/2017 14751 Inject Tendon Sheath Or Ligament Aponeurosis Eg Plantar Completed Fascia 05/09/2017 19564 Inject Tendon Sheath Or Ligament Aponeurosis Eg Plantar Completed Fascia 03/02/2014 28162 Polysomnography Sleep Staging 4+ Parameters Completed 04/28/2012 43351 Rad Exam; Foot Comp Completed 04/04/2012 04703 Rad Exam; Foot Comp Completed 04/04/2012 36551 Rad Exam; Foot Limited Completed 04/04/2012 16269 Rad Exam; Ankle Comp Completed 03/14/2012 62879 Short Leg Cast Completed 02/29/2012 73538 Short Leg Cast Completed 02/20/2012 73087 Arthrodesis Midtarsal/Tarsometatarsal Single Completed 02/20/2012 66470 Arthrodesis Midtarsal/Tarsometatarsal Single Completed 02/20/2012 57621 Bone Graft, Any Donor Area Major Or Large Completed 02/20/201205794 Bone Graft, Any Donor Area Major Or Large Completed 01/28/2012 57707 EKG, Interpretation Only Completed 10/08/2011 05913 Rad Exam; Foot Comp Completed 10/08/2011 45918 Rad Exam; Ankle Limited Completed 12/29/2010 44824 Xray Knee 3 Views Completed Encounters Type Date Location Provider Dx Diagnosis Office Visit 04/22/2018 Orthopedic Claude Nguyen, R22.41 Localized 9:30a [facility] swelling, mass and lump, right lower limb Office Visit 05/09/2017 Orthopedic Joyce Lugo, M65.311 Trigger thumb, 9:30a [facility] right thumb M65.312 Trigger thumb, left thumb M65.322 Trigger finger, left index finger M65.321 Trigger finger, right index finger M18.12 Unil primary osteoarth of first carpometacarp joint, l hand Office Visit 06/02/2012 Orthopedic Claude 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 Office Visit 11/05/2011 Orthopedic Claude 715.17 Osteoarthrosis 2:00p Services Of Gustavo Nguyen Localized Prim Ankle C.M.A. & Foot Office Visit 10/26/2011 Orthopedic Claude 715.17 Osteoarthrosis 8:00a Services Of Gustavo Nguyen Localized Prim Ankle C.M.A. & Foot Office Visit 10/08/2011 Orthopedic Claude 727.06 Tenosynovitis Foot & 2:00p Services Of Gustavo Nguyen Ankle C.M.A. 732.7 Osteochondritis Dissecans Office Visit 01/22/2011 10:30a Orthopedic Rajendra Gonzales, 836.0 Dislocation Knee Services Of MLandonDLandon Tear Of Medial C.M.A. Cartilage Or Meniscus Curr Office Visit 12/29/2010 11:00a Orthopedic Rajendra Gonzales 836.1 Dislocation Knee Services Of Gustavo Tear Of Lateral C.M.A. Cartilage Or Meniscus Curr 727.51 Cyst Synovial Popliteal Space Plan of Treatment 10/24/2018 - REYNALDO Baeza04.1 Nontoxic single thyroid noduleNew Xrays:US Thyroid, Scheduled: 04/14/19Follow up:6 monthsInstructions:1. Repeat thyroid ultrasound in 6 months. 2. Return in 6 months for a follow-up visit.I10 Essential (primary) hypertension
[2018-11-14] MEDS ORDERED: Diltiazem IV push/loading dose 5 MG/ML 5 ML vial (25 mg) IV SLOW PU ONE (08:27)
[2018-11-14 08:50] LABS: ABS Basophils 0.1 10^3/ul (0-0.2); ABS Eosinophils 0.2 10^3/ul (0-0.6); ABS Lymphocytes 0.7 10^3/ul (1.0-4.8); ABS Monocytes 0.9 10^3/ul (0-0.8); ABS Neutrophils 9.4 10^3/ul (1.5-7.7); Eosinophil % 1.6 %; Hematocrit 44 % (42-52); Hemoglobin 14.7 g/dL (14.0-18.0); Mean Corpuscular HGB Conc 33 g/dL (31-36); Mean Corpuscular Hemoglobin 31 pg (27-31); Mean Corpuscular Volume 93 fL (80-94); Mean Platelet Volume 8.6 fL (7.4-10.4); Platelet Count 240 10^3/uL (150-450); Red Blood Count 4.77 10^6 /uL (4.18-5.48); Red Cell Distribution Width 14 % (10.5-15); White Blood Count 11.3 10^3/uL (3.5-10.8)
[2018-11-14 09:12] LABS: Albumin 4.4 g/dL (3.2-5.2); Albumin/Globulin Ratio 1.8 (1-3); BUN/Creatinine Ratio 11.7 (8-20); C Reactive Protein 33.25 mg/L (<8.01); Calcium 9.5 mg/dL (8.6-10.3); EGFR African American 70.1 (>60); EGFR Non-African American 57.9 (>60); Globulin 2.5 g/dL (2-4); Potassium 4.5 mmol/L (3.5-5.0); Total Bilirubin 0.8 mg/dL (0.2-1.0); Total Protein 6.9 g/dL (6.4-8.9)
[2018-11-14 10:05] LABS: Urine Appearance Clear; Urine Bilirubin Negative (Negative); Urine Blood Negative (Negative); Urine Color Yellow; Urine Glucose Negative (Negative); Urine Ketones Negative (Negative); Urine Nitrite Negative (Negative); Urine Protein Negative (Negative); Urine Urobilinogen Negative (Negative)
[2018-11-14] MEDS ORDERED: Diltiazem IV VIAL* 125 MG in NS 0.9% 100 ML* 100 ML IVPB ONE ×2 (10:18→16:08)
[2018-11-14] MEDS: NS 0.9% 1000 ML** 2,000 ML IV ONE ×2 (10:20→11:35)
[2018-11-14] MEDS ORDERED: Ciprofloxacin 400MG IVPREMIX(* 400 MG/200 ML BAG IVPB ONE (10:21)
[2018-11-14] MEDS ORDERED: metroNIDAZOLE TAB* 250 MG PO ONE (10:21)
[2018-11-14] MEDS ORDERED: Acetaminophen TAB* 325 MG PO PRN (12:40)
[2018-11-14] MEDS ORDERED: Pantoprazole TAB * 40 MG TAB PO PRN (13:08)
[2018-11-14] MEDS ORDERED: ALPRAZolam TAB* 0.25 MG PO PRN (13:08)
--- NOTE | 2018-11-14 13:09 | CONS ---
CC: Dr. Tobin at [facility] CONSULTATION REPORT: DATE OF CONSULT: 11/14/18 REFERRAL PHYSICIAN: Dr. Henrique Garcia, [facility] Emergency Room. REASON FOR CARDIOLOGY CONSULTATION: Evaluation of asymptomatic atrial fibrillation in patient being admitted from the emergency room with diverticulitis, dehydration, and pain. HISTORY OF PRESENT ILLNESS: Mr. Land is a pleasant 57-year-old gentleman with a history of hypertension, being admitted with diverticulitis, dehydration , and pain in his abdomen. He was found to have atrial fibrillation on EKG. The patient himself denies any palpitations despite being in rapid AF at this time and really does not have any other cardiac symptoms. Of note, he is accompanied by his in the emergency room where I am seeing the patient.His main complaint is abdominal pain and GI distress. PAST MEDICAL HISTORY: Includes hypertension, he has had multiple episodes of diverticulitis in the past up to 5 or 6 times, allergies, GERD, anxiety, and depression. ALLERGIES: Reported as IODINE, SHELLFISH DERIVE, SULFA, CONTRAST DYE. FAMILY HISTORY: Unable to obtain other than as above due to patient's acute GI distress and discomfort. SOCIAL HISTORY: Unable to obtain other than as above due to patient's acute GI distress and discomfort. REVIEW OF SYSTEMS: Unable to obtain other than as above due to patient's acute GI distress and discomfort. PHYSICAL EXAM: Height 6 feet 4 inches, weight 205 pounds. Temperature 97.7 degrees Fahrenheit; pulse on initial evaluation in the ER was 145, is currently 110, pending Cardizem drip start; O2 saturation 100%; blood pressure ranging from 117/94 to 96/54. On general exam, he is a pleasant, somewhat pale appearing gentlemen in [id number] distress from his abdominal discomfort. HEENT: Shows cranium is normocephalic and atraumatic. He has dry mucous membranes. Neck veins are not distended. There are no carotid bruits visible. Skin: Warm and perfused. Affect appropriate, appears oriented. No significant kyphoscoliosis on back exam. Lungs are clear to auscultation. No wheezes, no rales. Cardiac Exam: S1, S2, irregular rate, tachycardic. No significant murmurs, rubs or gallops. PMI is nondisplaced. Abdomen is distended mildly and it is painful to palpation. Extremities: Without significant edema. Pulses appear intact. DIAGNOSTIC STUDIES/LAB DATA: A 12-lead EKG is reviewed from 11/14/18 at 8:20 a.m. which shows rapid atrial fibrillation and 146 beats per minute with left axis deviation. Repeat EKG completed 11/14/18 at 9:12 a.m. shows atrial fibrillation with a heart rate of 106 beats per minute. Per the patient, he had several EKGs with his PCP earlier this year which were benign. He did have a 12-lead EKG completed 05/04/14, which showed sinus rhythm with left axis deviation. Sodium 140, potassium 4.5, chloride 106, bicarbonate 27, BUN 15, creatinine 1.28. ALT 17, lipase 97, CRP 33.25. White blood cell count 11.3, hematocrit 44 , platelet count 240. IMPRESSION: Mr. Land is a pleasant 57-year-old gentleman with a history of diverticulitis, hypertension, being admitted with exacerbation of his diverticulitis. He was found to have asymptomatic atrial fibrillation including he denies any palpitation at this time, so timing of onset unclear. 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 There is no indication for cardioversion at this time especially given that he is otherwise hemodynamically stable and the timing of onset unknown with concern of cardioembolic phenomenon. I have discussed this in detail with the patient, his and Dr. Garcia. I am making the following recommendations. RECOMMENDATIONS: 1. Agree with Cardizem ip for heart rate control and we would start oral anticoagulation therapy if surgery is not required at this time and as he likely may benefit from cardioversion in the future acknowledging CHADS2-VASc score of 1. 2. If his atrial fibrillation persists and the patient is otherwise stable, consider transesophageal echocardiogram guided cardioversion on 11/17/18. 3. Recommend to check transthoracic echocardiogram. 4. Other management including diverticulitis and dehydration and pain per hospitalist medicine service and emergency medicine service. I have discussed the case in detail with Dr. Garcia. Many thanks for this kind cardiac consultation opportunity. Please do not hesitate to contact me if you have any questions or concerns regarding the patient's cardiovascular consultative care. [id number]/[facility] #: [id number] HERNANDEZ
[2018-11-14] MEDS ORDERED: Apixaban* 5 MG TAB PO ONE (13:17)
[2018-11-14] MEDS: Diltiazem TAB* 30 MG PO SCH ×2 (16:35→21:54)
--- NOTE | 2018-11-14 17:08 | ECHO ---
*[facility]* [place] [address] Fax #: [phone] Transthoracic Echocardiogram Patient: Emery, Height: 76 in / Gordo Maddox 193 cm : 1960 Weight: 204.6 lb / Study Date: 11/14/2018 93 kg Age: 57 BP: 119 / 69 Gender: M BMI/BSA: 25 kg/m^2 HR: 71 bpm / 2.24 m^2 *Spot Facer: * Eva Gilbert [facility] *Referring Physician: * Kacie Montero *Reading Physician: * Serge Toribio MD Indications: Abnormal EKG. History: Risk factors: Hypertension. Conclusions Summary: 1. Left ventricle: The cavity size is normal. Wall thickness is mildly increased. Systolic function is normal. The estimated ejection fraction is 60-65%, by visual assessment. Wall motion is normal; there are no regional wall motion abnormalities. 2. Normal cardiac chamber sizes. 3. Functionally benign heart valves. 4. Aortic root: The aortic root is mildly dilated. 5. Ascending aorta: The ascending aorta is mildly dilated. 6. There is no prior echocardiogram available to compare with at this time. Study data: Transthoracic echocardiogram. Complete 2D, spectral Doppler, and color flow Doppler. Location: Bedside. Patient status: Inpatient. Patient room number: 445-1. Rhythm: Normal sinus rhythm. Findings Left ventricle: The cavity size is normal. Wall thickness is mildly increased. Systolic function is normal. The estimated ejection fraction is 60-65%, by visual assessment. Wall motion is normal; there are no regional wall motion abnormalities. There is no consistent Doppler evidence of clinically significant diastolic dysfunction. Right ventricle: The cavity size is at the upper limits of normal. Systolic function is normal. Left atrium: The atrium is at the upper limits of normal in size. Right atrium: The atrium is normal in size. Mitral valve: The annulus is thickened. Mild focal thickening of the anterior leaflet. There is trivial regurgitation. The peak diastolic gradient is 3.4 mm Hg. Aortic valve: The annulus is calcified. The valve is trileaflet. Mild focal thickening involving the right coronary and noncoronary cusp. There is no evidence of stenosis. There is no regurgitation. The ratio of LVOT to aortic valve peak velocity is 1.01. The ratio of LVOT to aortic valve mean velocity is 0.92. The mean systolic gradient is 2.0 mm Hg. The peak systolic gradient is 5.0 mm Hg. Tricuspid valve: The leaflets are normal thickness. There is trivial regurgitation. Normal estimated pulmonary artery systolic pressure of 28 mm Hg. Pulmonic valve: The leaflets are normal thickness. There is no evidence of stenosis. There is no regurgitation. The peak systolic gradient is 6.0 mm Hg. Aorta: Aortic root: The aortic root is mildly dilated. Ascending aorta: The ascending aorta is mildly dilated. Aortic arch: The aortic arch is appears normal. Pericardium: A prominent pericardial fat pad is present. There is no pericardial effusion. Pulmonary arteries: The main pulmonary artery is normal-sized. Systemic veins: Inferior vena cava: The vessel is dilated. The respirophasic diameter changes are in the normal range (>= 50%). Measurements Left ventricle Value Ref Right atrium Value Ref TYLER, LAX 4.2 cm 4.2 - 5.8 SI dim, ES 5.2 cm 3.4 - 5.3 ESD, LAX (L) 1.9 cm 2.5 - 4.0 ML dim, ES, A4C 4.2 cm 2.6 - 4.4 PW, ED, LAX (H) 1.2 cm 0.6 - 1.0 Estimated RAP 3 mm Hg --------- TYLER 4.2 cm 4.2 - 5.8 ESD (L) 1.9 cm 2.5 - 4.0 Aortic valve Value Ref TYLER/bsa (L) 1.9 cm/m^2 2.2 - 3.0 Jose diam, ED 2.3 cm --------- ESD/bsa (L) 0.8 cm/m^2 1.3 - 2.1 Peak v, S 1.17 m/sec --------- FS (H) 55 % 25 - 43 Mean v, S 0.76 m/sec --------- Mid-wall FS 17 % --------- VTI, S 21.4 cm --------- PW, ED (H) 1.2 cm 0.6 - 1.0 Mean grad, S 2.0 mm Hg --------- EF (H) 86 % 52 - 72 Peak grad, S 5.0 mm Hg --------- Mass 167 g 96 - 200 LVOT/AV, Vpeak ratio 1.01 --------- Mass/bsa 74 g/m^2 50 - 102 Mass/ht 86.33 g/m --------- Mitral valve Value Ref Mass/ht^2.7 28.22 g/m^2.7 --------- Peak E 0.92 m/sec --------- E', lat jose, TDI (L) 9.2 cm/sec >=10.0 Peak A 0.74 m/sec -- ------- E/e', lat jose, 10 --------- Decel time 197 ms ----- ---- TDI Peak grad, D 3.4 mm Hg --------- E', med jose, TDI 7.2 cm/sec >=7.0 Peak E/A ratio 1.2 -- ------- E/e', med jose, 13 --------- TDI Tricuspid valve Value Ref E', avg, TDI 8.2 cm/sec --------- TR peak v 2.22 m/sec <= 2.8 E/e', avg, TDI 11 <=14 Peak RV-RA grad, S 20 mm Hg -- ------- LVOT Value Ref Aortic root Value Ref Peak connor, S 1.18 m/sec --------- Root diam 3.8 cm <4.3 Mean connor, S 0.7 m/sec --------- Peak grad, S 6 mm Hg --------- Ascending aorta Value Ref Mean grad, S 2 mm Hg --------- AAo AP diam, S 3.6 cm --------- Ventricular septum Value Ref Aortic arch Value Ref IVS, ED, LAX (H) 1.2 cm 0.6 - 1.0 Arch diam 2.0 cm --------- IVS, ED (H) 1.2 cm 0.6 - 1.0 Decending aorta Value Ref Right ventricle Value Ref Nathalia peak connor 1.12 m/sec --------- AW thickness, ED (H) 0.8 cm 0.1 - 0.5 TYLER, LAX 3.0 cm --------- Pulmonary artery Value Ref Pressure, S 28 mm Hg --------- Pressure, S 28.0 mm Hg --------- Left atrium Value Ref Inferior vena cava Value Ref AP dim, ES 3.50 cm 3.00 - Diam 2.4 cm --------- 4.00 ML dim, A4C 4.6 cm --------- SI dim, A4C 5.2 cm --------- Vol/bsa, ES, 1-p 31 ml/m^2 12 - 37 A4C Vol/bsa, ES, A/L 34 ml/m^2 16 - 34 Legend: (L) and (H) brent values outside specified reference range. Prepared and electronically signed by Serge Toribio MD 11/14/2018 17:07
--- NOTE | 2018-11-14 17:09 | HP ---
CC: Dulce Tobin MD HISTORY AND PHYSICAL: DATE OF ADMISSION: 11/14/2018 PRIMARY CARE PHYSICIAN: Dulce Tobin MD CODE STATUS: Full. CHIEF COMPLAINT: Left lower quadrant pain for 2 days. HISTORY OF PRESENT ILLNESS: Mr. Land is a 57-year-old male with a history of GERD, multiple episodes of diverticulitis, depression/anxiety, and history of DVT/PE, who is presenting with subacute left lower quadrant pain. He reports this started 2 days ago when he initially thought that it was a gas pain because he has been passing lot of gas. However, the pain progressed and eventually was associated with increase in bowel movements with his stools becoming more and more loose. He denies blood or black stools. He thinks he had night sweats 2 nights ago, but otherwise denies increased diaphoresis and also denies fevers and chills. Of note, he denies chest pain, lightheadedness, or palpitations. Because he thought this was similar to his prior episodes of diverticulitis, he presented to the hospital for further care. In the emergency room, he was noted to be tachycardic. EKG performed showed AFib with RVR in the 140s. The patient denies history of atrial fibrillation. At that time, his blood pressure was 98/62 and the patient was given 4 L of IV fluid and placed on a Cardizem drip. An abdomen and pelvis CT showed diverticulitis without concern for abscess or perforation. On Cardizem drip, the patient's heart rate decreased to around 100 but would increase to 150 on ambulation. Cardiology was consulted for possible cardioversion, but Cardiology consult stated this would be contraindicated given active infection and dehydration with recommendation to admit the patient to the hospital for rate control, blood thinners, and treatment of his active infection. PAST MEDICAL HISTORY: 1. Hypertension. 2. Diverticulitis, 5 episodes since 1999. 3. GERD. 4. Seasonal allergies. 5. Anxiety and depression with history of suicidal ideation. 6. IBS. HOME MEDICATIONS: 1. Sertraline 100 mg daily. 2. Alprazolam 0.25 mg at bedtime as needed. 3. Omeprazole 20 mg daily. 4. Montelukast 10 mg daily. 5. Lisinopril 5 mg daily. 6. Hyoscyamine 0.375 mg daily. 7. Cyclobenzaprine 10 mg daily as needed for back pain. 8. Azelastine intranasal as needed for seasonal allergies. ALLERGIES: 1. SHELLFISH and CONTRAST DYE cause anaphylaxis. 2. SULFA ANTIBIOTICS cause hives. FAMILY HISTORY: His mother at the age of 59 from metastatic breast cancer. Father from [place] at 70. He also had multiple strokes. One sister has type 1 diabetes. Another sister has uterine cancer and his brother has problems with addiction to alcohol and other drugs. 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 He drinks approximately 2 beers per week. Denies current or history of tobacco or other drugs. PHYSICAL EXAMINATION GENERAL: Pleasant, comfortable-appearing man, appears as stated age, nontoxic, and in no distress. VITAL SIGNS: T-max 97.9, heart rate 110s, blood pressure 119/69, respiratory rate 12, oxygen saturation 95% on 2 L. HEENT: Moist mucous membranes. NECK: No JVD. LUNGS: Clear to auscultation bilaterally. HEART: Tachycardic, irregularly irregular. No murmurs, gallops, or rubs. ABDOMEN: Mild distention, mild tenderness to palpation in left lower quadrant. No guarding. Mild rebound tenderness. Soft, no organomegaly. EXTREMITIES: Warm, well perfused. No edema. DIAGNOSTIC STUDIES/LABORATORY DATA: Labs reviewed and significant for leukocytosis of 11.3, creatinine 1.28, at baseline. CRP 33. UA: Clear. Abdomen and pelvis CT: With diverticulitis without loculated fluid collection to suggest abscess, diverticulitis of the descending and sigmoid colon with mucosal thickening and stranding of the pericolonic fat along the sigmoid colon. EKG: Normal sinus rhythm, rate 74. Prior EKG from the morning: Atrial fibrillation, ventricular rate 106, irregular, left axis deviation. ASSESSMENT AND PLAN: 57-year-old male with a history of hypertension, depression/anxiety, diverticulitis, gastroesophageal reflux disease, irritable bowel syndrome, who is presenting with recurrence of left lower quadrant pain, found with leukocytosis and CT concerning for diverticulitis, also noted to have new-onset atrial fibrillation with RVR. 1. Atrial fibrillation. We will maintain on Cardizem drip for rate control and starting on apixaban for anticoagulation. May cardiovert after the weekend. We will order transthoracic echo. 2. Diverticulitis. Continue IV Cipro, Flagyl. Likely, we will switch to p.o. tomorrow. We will continue pain control and monitor volume status. 3. Depression/anxiety. Continue sertraline and alprazolam p.r.n. 4. Gastroesophageal reflux disease. Continue PPI. 5. Seasonal allergies. Continue montelukast. 6. DVT prophylaxis. The patient is on therapeutic anticoagulation. 7. Code status. Full code. TIME SPENT: Approximately 60 minutes was spent on admission of this patient, more than half of which was spent at bedside for the interview and exam. [id number]/CPS #: [id number] HERNANDEZ
[2018-11-14] MEDS: metroNIDAZOLE IV 500 MG/100ML* 500 MG/100 ML BAG IVPB SCH (18:06)
[2018-11-14] MEDS: Acetaminophen TAB* 325 MG PO PRN (18:28)
[2018-11-14] MEDS: Ciprofloxacin 400MG IVPREMIX(* 400 MG/200 ML BAG IVPB SCH (19:44)
[2018-11-14] MEDS: Melatonin 3 MG TAB PO SCH (21:54)
[2018-11-15] MEDS: metroNIDAZOLE IV 500 MG/100ML* 500 MG/100 ML BAG IVPB SCH ×2 (02:23→10:12)
[2018-11-15] MEDS: Diltiazem TAB* 30 MG PO SCH ×4 (04:37→22:02)
[2018-11-15] MEDS: Acetaminophen TAB* 325 MG PO PRN (06:41)
[2018-11-15 06:45] LABS: Hematocrit 38 % (42-52); Hemoglobin 12.8 g/dL (14.0-18.0); Mean Corpuscular HGB Conc 34 g/dL (31-36); Mean Corpuscular Hemoglobin 32 pg (27-31); Mean Corpuscular Volume 93 fL (80-94); Mean Platelet Volume 8.5 fL (7.4-10.4); Platelet Count 182 10^3/uL (150-450); Red Blood Count 4.06 10^6 /uL (4.18-5.48); Red Cell Distribution Width 14 % (10.5-15); White Blood Count 6.3 10^3/uL (3.5-10.8)
[2018-11-15 07:05] LABS: BUN/Creatinine Ratio 13.7 (8-20); Calcium 8.9 mg/dL (8.6-10.3); EGFR African American 98.9 (>60); EGFR Non-African American 81.7 (>60); Magnesium 2.2 mg/dL (1.9-2.7); Potassium 3.9 mmol/L (3.5-5.0)
[2018-11-15 07:18] LABS: TSH (Thyroid Stimulating Horm) 2.1 mcIU/mL (0.34-5.60)
[2018-11-15] MEDS: Ciprofloxacin 400MG IVPREMIX(* 400 MG/200 ML BAG IVPB SCH (07:30)
[2018-11-15] MEDS ORDERED: Sertraline* 100 MG TAB PO SCH ×2 (09:00→21:00)
--- NOTE | 2018-11-15 09:56 | PN ---
Subjective Date of Service: 11/15/18 Interval History: HR overnight decreased to 40s and pt was without symptoms. Overnight dilt 30mg dose held. Pt denies issues overnight. States he is feeling better today. Still with diarrhea but with improvement in abdominal pain. Appetite is good. Objective Active Medications: Acetaminophen (Tylenol Tab*) 975 mg PO Q6H PRN PRN Reason: FEVER/PAIN Last Admin: 11/15/18 06:41 Dose: 975 mg Alprazolam (Xanax Tab*) 0.25 mg PO BEDTIME PRN PRN Reason: ANXIETY Ciprofloxacin (Cipro Tab*) 500 mg PO Q12HR [facility] Diltiazem HCl (Cardizem Tab*) 30 mg PO 0430,1030,1630,2230 [facility] Last Admin: 11/15/18 04:37 Dose: Not Given Melatonin (Melatonin) 3 mg PO BEDTIME [facility] Last Admin: 11/14/18 21:54 Dose: Not Given Metronidazole (Flagyl) 500 mg PO Q8H [facility] Montelukast Sodium (Singulair Tab*) 10 mg PO QAM CARISSA Pantoprazole Sodium (Protonix Tab*) 40 mg PO QPM PRN PRN Reason: HEARTBURN Sertraline HCl (Zoloft*) 100 mg PO BEDTIME [facility] Vital Signs - 8 hr 11/15/18 03:43 Temperature 97.3 F Pulse Rate 51 Respiratory 16 Rate Blood Pressure 114/70 (mmHg) O2 Sat by Pulse 100 Oximetry Oxygen Devices in Use Now: None Appearance: well-appearing, friendly Respiratory: Clear to Auscultation Cardiovascular: RRR Abdominal: - - mild ttp over LLQ Extremities: No Edema Neurological: Alert and Oriented x 3 Result Diagrams: 11/15/18 06:27 11/15/18 06:27 Microbiology and Other Data: Microbiology 11/14/18 14:15 Nasal Screen MRSA (PCR) - Final Nasal Mrsa Not Detected Assess/Plan/Problems-Billing Assessment: 57-year-old male with a history of hypertension, depression/anxiety, diverticulitis, gastroesophageal reflux disease, irritable bowel syndrome, who is presenting with recurrence of left lower quadrant pain, found with leukocytosis and CT concerning for diverticulitis, also noted to have new-onset atrial fibrillation with RVR. - Patient Problems (1) Paroxysmal A-fib Comment: Converted back to NSR within 24 hours of rate-control. - started on apixaban - will attempt rate control with dilt as tolerated, but given low HR, may require metoprolol or nothing - cont on telemetry (2) Diverticulitis Current Visit: Yes Comment: Improving. - switch cipro/Flagyl to PO today (3) Anxiety and depression Comment: cont sertraline 100mg nightly, alprazolam prn (4) Hypertension Comment: Hypovolemic and septic on admission. Now with normal BP, likely due to dilt for afib. - hold home lisinopril, restart as needed
[2018-11-15] MEDS: Montelukast Sodium TAB* 10 MG PO SCH (10:12)
[2018-11-15] MEDS: metroNIDAZOLE TAB* 250 MG PO SCH ×2 (10:23→22:01)
[2018-11-15] MEDS: Ciprofloxacin TAB* 500 MG PO SCH (19:32)
[2018-11-15] MEDS: Melatonin 3 MG TAB PO SCH (20:59)
[2018-11-16] MEDS: Diltiazem TAB* 30 MG PO SCH (05:02)
[2018-11-16] MEDS: metroNIDAZOLE TAB* 250 MG PO SCH (05:55)
[2018-11-16 08:08] VITALS: BP 129/85
[2018-11-16] MEDS: Ciprofloxacin TAB* 500 MG PO SCH (08:11)
[2018-11-16] MEDS: Montelukast Sodium TAB* 10 MG PO SCH (08:12)
[2018-11-16] MEDS ORDERED: Metoprolol Succinate XL TAB* 25 MG PO SCH (09:00)
[2018-11-16 09:38] LABS: Hematocrit 42 % (42-52); Hemoglobin 14.3 g/dL (14.0-18.0); Mean Corpuscular HGB Conc 34 g/dL (31-36); Mean Corpuscular Hemoglobin 32 pg (27-31); Mean Corpuscular Volume 93 fL (80-94); Mean Platelet Volume 8.5 fL (7.4-10.4); Platelet Count 220 10^3/uL (150-450); Red Cell Distribution Width 14 % (10.5-15)
[2018-11-16] MEDS ORDERED: Apixaban* 5 MG TAB PO SCH (09:45)
[2018-11-16 09:56] LABS: BUN/Creatinine Ratio 13.2 (8-20); Calcium 9.5 mg/dL (8.6-10.3); EGFR African American 87.1 (>60); Magnesium 2.1 mg/dL (1.9-2.7); Potassium 3.7 mmol/L (3.5-5.0)
--- NOTE | 2018-11-16 12:17 | DS ---
CC: Dulce Tobin MD; Dr. Toribio * DISCHARGE SUMMARY: DATE OF ADMISSION: 11/14/18 DATE OF DISCHARGE: 11/16/18 PRIMARY CARE PHYSICIAN: Dulce Tobin MD. PRIMARY DIAGNOSES: 1. Diverticulitis. 2. Atrial fibrillation, paroxysmal, resolved. SECONDARY DIAGNOSES: 1. Depression and anxiety. 2. Hypertension. 3. Gastroesophageal reflux disease. 4. Inflammatory bowel syndrome. 5. Seasonal allergies. CONSULTS: Cardiology, Dr. Toribio. DISCHARGE MEDICATIONS: 1. Apixaban 5 mg twice a day. 2. Ciprofloxacin 500 mg twice a day for 5 more days. 3. Metronidazole 500 mg every 8 hours for 5 more days. 4. Metoprolol succinate 25 mg daily. 5. Sertraline 100 mg nightly. 6. Alprazolam 0.25 mg nightly. 7. Cyclobenzaprine 10 mg at bedtime as needed for back spasm. 8. Azelastine inhalation as needed for allergies. 9. Hyoscyamine 0.375 mg twice a day. 10. Melatonin 3 mg at bedtime. 11. Montelukast 10 mg daily. 12. Omeprazole 20 mg daily. 13. Ibuprofen 600 mg 3 times a day as needed for pain. 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 He reports that this started 2 days prior to admission when he initially thought that it was gas pain because he has been experiencing some abdominal distention and passing gas. However, the pain progressed and eventually was associated with increase in bowel movements. His stools were becoming more and more loose, but without blood or black. He thinks he had night sweats 2 nights prior to presentation, but otherwise denies fevers, chills, or increase in diaphoresis. Because he thought this was similar to his prior episodes of diverticulitis, he presented to the hospital for further care. HOSPITAL COURSE: In the emergency room, he was noted to be tachycardic. EKG performed showed AFib with RVR in the 140s. The patient had denied history of atrial fibrillation, denied chest pains, palpitations, lightheadedness. At that time, blood pressure was 98/62, so he was given 4 L of IV fluid and placed on a Cardizem drip. Imaging was concerning for diverticulitis without abscess or perforation, so he was started on Cipro and Flagyl IV. Initially, on the Cardizem drip, his heart rate was maintained around 100 at rest, but would increase to 150s on ambulation, so Cardiology was consulted for possible cardioversion. They stated that this was contraindicated given active infection and dehydration and requested the patient be admitted over the weekend with plan for rate control on Saturday. However, by first night of admission, the patient spontaneously returned to normal sinus rhythm and was noted to have bradycardia after switching to oral diltiazem. By next day after admission, he was switched to oral antibiotics, which he tolerated well with good appetite. He continued to have bradycardia, though he was switched to low dose metoprolol succinate, which he tolerated well and by day of admission, he reported absence of fevers and chills, improvement in his abdominal pain. He reported excellent appetite and resolution of his diarrhea. He continued to take several walks on the floor; he was getting over 5000 steps without any episodes of lightheadedness, palpitation, or dizziness. Otherwise, 10-point review of systems was negative. PHYSICAL EXAMINATION: Afebrile, heart rate 61, blood pressure 129/85, respiratory rate 12, oxygen saturation 99% on room air. In general, he is a well-appearing man, friendly, alert, interactive, appropriate, and nontoxic. HEENT: Pupils are equal and reactive to light and accommodation. Moist mucous membranes. Neck: No JVD. Lungs: Clear to auscultation bilaterally. Heart: Regular rate and rhythm. No murmurs, gallops, or rubs. Abdomen: Soft, mild tenderness to deep palpation of left lower quadrant. No guarding or rebound. Extremities: Warm and well perfused. No edema. PERTINENT STUDIES AND LABS: Initial leukocytosis 11.3, resolved. Hemoglobin 14. CRP 33. Transthoracic echocardiogram with normal cavity size of LV with mild increase in wall thickness, systolic function normal, EF 60% to 65%. Wall motion is normal without regional wall motion abnormalities, benign heart valves, aortic root mildly dilated with ascending aorta mildly dilated. Abdomen and pelvis CT diverticulitis without loculated fluid collection to suggest abscess. There is diverticulosis of the descending and sigmoid colon. There is mucosal thickening with stranding of the pericolonic fat along the sigmoid colon. DISCHARGE PLAN: The patient is to follow up with his primary care physician for ongoing monitoring of his chronic medical issues including hypertension. Of note, his lisinopril 5 mg was held throughout hospitalization as pressures remained normal. He reports that he only was started on lisinopril after going through severe stress at home, most notably a divorce and that he may not actually have diagnosis of hypertension. If so, this would make his CHADS-VASC score 0, which means he does not require anticoagulation for this paroxysmal episode of atrial fibrillation that has already resolved. However, he will be continued on rate control agent, starting metoprolol succinate 25 mg daily as well as apixaban until he can follow up with outpatient providers. However, it is likely that he will no longer need rate control or blood thinners on a long- term basis. He was also discharged with oral ciprofloxacin and metronidazole to complete a total of 7 days of antibiotics for his diverticulitis. He is to continue other chronic home medications as listed above. He is to eat healthy diet and consider a high-fiber foods and he may consider probiotic as well, as this may help prevent recurrence of diverticulitis. DISPOSITION: To home. CONDITION: Good. TIME SPENT: Approximately 60 minutes were spent on the discharge of this patient; more than half of which was spent in care, coordination and at bedside for interview and exam. [id number]/CPS #: [id number] MTDD
== END 2018-11-16 13:05 | disposition home or self-care (01) | DRG 244 ==
LOC: ED 08:00 → MEDTELE 12:40
PROVIDERS: ADMIT Internal Medicine; ATTEND Internal Medicine
DX: K57.32 Diverticulitis of large intestine without perforation or abscess without bleeding (principal); I48.0 Paroxysmal atrial fibrillation; F32.9 Major depressive disorder, single episode, unspecified; F41.9 Anxiety disorder, unspecified; I10 Essential (primary) hypertension; K21.9 Gastro-esophageal reflux disease without esophagitis; K58.9 Irritable bowel syndrome, unspecified; J30.2 Other seasonal allergic rhinitis; E86.0 Dehydration; Z86.718 Personal history of other venous thrombosis and embolism; Z86.711 Personal history of pulmonary embolism; Z79.899 Other long term (current) drug therapy; Z88.2 Allergy status to sulfonamides; Z91.041 Radiographic dye allergy status; Z91.013 Allergy to seafood; Z80.3 Family history of malignant neoplasm of breast; Z80.49 Family history of malignant neoplasm of other genital organs; Z81.1 Family history of alcohol abuse and dependence; Z83.3 Family history of diabetes mellitus; Z82.49 Family history of ischemic heart disease and other diseases of the circulatory system; Z82.3 Family history of stroke
CPT/HCPCS: 36415; 74176; 80048; 80053; 81003; 82550; 83036; 83605; 83690; 83735; 84443; 85025; 85027; 86140; 86850; 86900; 86901; 87641; 93005; 93306; 99285; A9270-GY; J0744; J3490

== ENCOUNTER 2018-11-25 21:30 | Observation (INO) | payer BC ==
[2018-11-25 22:37] LABS: ABS Basophils 0.1 10^3/ul (0-0.2); ABS Eosinophils 0.2 10^3/ul (0-0.6); ABS Lymphocytes 1.2 10^3/ul (1.0-4.8); ABS Monocytes 0.9 10^3/ul (0-0.8); ABS Neutrophils 9.7 10^3/ul (1.5-7.7); Eosinophil % 1.7 %; Hematocrit 42 % (42-52); Hemoglobin 14.2 g/dL (14.0-18.0); Lymphocyte % 9.8 %; Mean Corpuscular HGB Conc 34 g/dL (31-36); Mean Corpuscular Hemoglobin 31 pg (27-31); Mean Corpuscular Volume 91 fL (80-94); Mean Platelet Volume 7.9 fL (7.4-10.4); Platelet Count 273 10^3/uL (150-450); Red Blood Count 4.62 10^6 /uL (4.18-5.48); Red Cell Distribution Width 14 % (10.5-15); White Blood Count 12.1 10^3/uL (3.5-10.8)
[2018-11-25 22:42] LABS: INR 1.16 (0.82-1.09)
[2018-11-25 22:54] LABS: Albumin 4.5 g/dL (3.2-5.2); Albumin/Globulin Ratio 1.8 (1-3); BUN/Creatinine Ratio 14.3 (8-20); C Reactive Protein 13.33 mg/L (<8.01); Calcium 9.6 mg/dL (8.6-10.3); EGFR African American 88.1 (>60); EGFR Non-African American 72.8 (>60); Globulin 2.5 g/dL (2-4); Total Bilirubin 0.4 mg/dL (0.2-1.0)
[2018-11-25] MEDS ORDERED: Piperacillin/Tazobac ADVAN(*) 3.375 GM in NS 0.9% 100 ML* 100 ML IVPB ONE (23:27)
[2018-11-25] MEDS ORDERED: Morphine 4 MG/ML VIAL (1 ml) 4 MG/ML VIAL IV ONE (23:38)
[2018-11-25] MEDS ORDERED: NS 0.9% 1000 ML** 1,000 ML IV ONE (23:38)
[2018-11-25] MEDS ORDERED: Ondansetron INJ* 2 MG/ML VIAL IV ONE (23:38)
--- NOTE | 2018-11-25 23:48 | ED ---
Abdominal Pain/Male - HPI Summary HPI Summary: Pt is a 57 y/o male who presents to the ED c/o abdominal pain. He was admitted to [facility] on 11/14/18 for diverticulitis, and was prescribed Cirpo and Flagyl. He finished these medications 3 days ago and has been symptom-free. This morning he began to have LLQ pain again which has been worsening. Pain is now rated a 6/ 10 in severity. Pt also c/o hematochezia, diarrhea, and nausea. He denies any vomiting, fever, CP, or palpitations. Pt states this is his seventh bout of diverticulitis. - History of Current Complaint Chief Complaint: EDAbdPain Stated Complaint: DIVERTICULITIS PER PT Time Seen by Provider: 11/25/18 23:26 Hx Obtained From: Patient Onset/Duration: Gradual Onset, Lasting Hours - This morning, Worse Since Timing: Constant Severity Currently: Moderate Pain Intensity: 6 Pain Scale Used: 0-10 Numeric Location: Discrete At: LLQ Alleviating Factor(s): Medications - abx Associated Signs And Symptoms: Positive: Blood in Stool, Nausea, Diarrhea. Negative: Fever, Vomiting - Allergies/Home Medications Allergies/Adverse Reactions: Allergies Allergy/AdvReac Type Severity Reaction Status Date / Time iodine Allergy Hives Verified 11/25/18 21:45 shellfish derived Allergy anaphylaxis Verified 11/25/18 21:45 Sulfa (Sulfonamide Allergy Hives Verified 11/25/18 21:45 Antibiotics) contrast dye Allergy Anaphylatic Uncoded 11/25/18 21:45 Shock PMH/Surg Hx/FS Hx/Imm Hx Endocrine/Hematology History: Denies: Hx Diabetes Cardiovascular History: Reports: Hx Hypertension - off meds now Denies: Other Cardiovascular Problems/Disorders Respiratory History: Reports: Hx Asthma - A CHILD X 1 ATTACK-NONE SINCE, Hx Pulmonary Embolism - AND DVT IN 2009, after surgery Denies: Other Respiratory Problems/Disorders GI History: Reports: Hx Diverticulosis - diverticulitis, Hx Gastroesophageal Reflux Disease - ON MEDICATION FOR, Hx Irritable Bowel, Other GI Disorders - DIVERTICULOSIS History: Denies: Hx Renal Disease Musculoskeletal History: Reports: Hx Bursitis - LEFT HIP, Hx Tendonitis - KNEES Sensory History: Reports: Hx Contacts or Glasses - GLASSES Denies: Hx Hearing Aid Opthamlomology History: Reports: Hx Contacts or Glasses - GLASSES Neurological History: Reports: Hx Headaches Denies: Hx Dementia, Hx Seizures, Hx Spinal Cord Injury, Hx Transient Ischemic Attacks (TIA), Other Neuro Impairments/Disorders Psychiatric History: Reports: Hx Anxiety - meds, Hx Depression - meds - Surgical History Surgery Procedure, Year, and Place: deviated septum,1996. right inguinal hernia , 2000. left foot bone spur and revision, 2009 and 2011. 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 Negative: Vomiting All Other Systems Reviewed And Are Negative: Yes Physical Exam - Summary Physical Exam Summary: Appearance: well appearing, no pain distress Skin: warm, dry, reflects adequate perfusion Head/face: normal Eyes: EOMI, BRIANDA ENT: mucous membranes moist Neck: supple, non-tender Respiratory: CTA, breath sounds present Cardiovascular: RRR, pulses symmetrical Abdomen: left mid tenderness, soft Bowel Sounds: present Musculoskeletal: normal, strength/ROM intact Neuro: normal, sensory motor intact, A&Ox3 Triage Information Reviewed: Yes Vital Signs On Initial Exam: Initial Vitals Temp Pulse Resp BP Pulse Ox 99.0 F 66 16 181/103 98 11/25/18 21:40 11/25/18 21:40 11/25/18 21:40 11/25/18 21:40 11/25/18 21:40 Vital Signs Reviewed: Yes Diagnostics - Vital Signs Vital Signs Temp Pulse Resp BP Pulse Ox 11/25/18 21:40 99.0 F 66 16 181/103 98 - Laboratory Lab Results: Lab Results 11/25/18 11/25/18 11/25/18 Range/Units 22:26 22:26 22:26 WBC 12.1 H (3.5-10.8) 10^3/uL RBC 4.62 (4.18-5.48) 10^6 /uL Hgb 14.2 (14.0-18.0) g/dL Hct 42 (42-52) % MCV 91 (80-94) fL MCH 31 (27-31) pg MCHC 34 (31-36) g/dL RDW 14 (10.5-15) % Plt Count 273 (150-450) 10^3/uL MPV 7.9 (7.4-10.4) fL Neut % (Auto) 80.3 % Lymph % (Auto) 9.8 % [place] % (Auto) 7.8 % Eos % (Auto) 1.7 % Baso % (Auto) 0.4 % Absolute Neuts (auto) 9.7 H (1.5-7.7) 10^3/ul Absolute Lymphs (auto) 1.2 (1.0-4.8) 10^3/ul Absolute Monos (auto) 0.9 H (0-0.8) 10^3/ul Absolute Eos (auto) 0.2 (0-0.6) 10^3/ul Absolute Basos (auto) 0.1 (0-0.2) 10^3/ul Absolute Nucleated RBC 0.0 10^3/ul Nucleated RBC % 0.0 INR (Anticoag Therapy) 1.16 H (0.82-1.09) Sodium 139 (135-145) mmol/L Potassium 4.0 (3.5-5.0) mmol/L Chloride 104 (101-111) mmol/L Carbon Dioxide 30 (22-32) mmol/L Anion Gap 5 (2-11) mmol/L BUN 15 (6-24) mg/dL Creatinine 1.05 (0.67-1.17) mg/dL Est GFR ( Amer) 88.1 (>60) Est GFR (Non-Af Amer) 72.8 (>60) BUN/Creatinine Ratio 14.3 (8-20) Glucose 72 (70-100) mg/dL Lactic Acid (0.5-2.0) mmol/L Calcium 9.6 (8.6-10.3) mg/dL Total Bilirubin 0.40 (0.2-1.0) mg/dL AST 17 (13-39) U/L ALT 18 (7-52) U/L Alkaline Phosphatase 55 (34-104) U/L C-Reactive Protein 13.33 H (<8.01) mg/L Total Protein 7.0 (6.4-8.9) g/dL Albumin 4.5 (3.2-5.2) g/dL Globulin 2.5 (2-4) g/dL Albumin/Globulin Ratio 1.8 (1-3) Lipase 34 (11.0-82.0) U/L / Range/Units 22:26 WBC (3.5-10.8) 10^3/uL RBC (4.18-5.48) 10^6 /uL Hgb (14.0-18.0) g/dL Hct (42-52) % MCV (80-94) fL MCH (27-31) pg MCHC (31-36) g/dL RDW (10.5-15) % Plt Count (150-450) 10^3/uL MPV (7.4-10.4) fL Neut % (Auto) % Lymph % (Auto) % [place] % (Auto) % Eos % (Auto) % Baso % (Auto) % Absolute Neuts (auto) (1.5-7.7) 10^3/ul Absolute Lymphs (auto) (1.0-4.8) 10^3/ul Absolute Monos (auto) (0-0.8) 10^3/ul Absolute Eos (auto) (0-0.6) 10^3/ul Absolute Basos (auto) (0-0.2) 10^3/ul Absolute Nucleated RBC 10^3/ul Nucleated RBC % INR (Anticoag Therapy) (0.82-1.09) Sodium (135-145) mmol/L Potassium (3.5-5.0) mmol/L Chloride (101-111) mmol/L Carbon Dioxide (22-32) mmol/L Anion Gap (2-11) mmol/L BUN (6-24) mg/dL Creatinine (0.67-1.17) mg/dL Est GFR ( Amer) (>60) Est GFR (Non-Af Amer) (>60) BUN/Creatinine Ratio (8-20) Glucose (70-100) mg/dL Lactic Acid 0.7 (0.5-2.0) mmol/L Calcium (8.6-10.3) mg/dL Total Bilirubin (0.2-1.0) mg/dL AST (13-39) U/L ALT (7-52) U/L Alkaline Phosphatase (34-104) U/L C-Reactive Protein (<8.01) mg/L Total Protein (6.4-8.9) g/dL Albumin (3.2-5.2) g/dL Globulin (2-4) g/dL Albumin/Globulin Ratio (1-3) Lipase (11.0-82.0) U/L Result Diagrams: 11/25/18 22:26 11/25/18 22:26 Lab Statement: Any lab studies that have been ordered have been reviewed, and results considered in the medical decision making process. - CT CT A/P CT Interpretation Completed By: Radiologist Summary of CT Findings: 1. Midsigmoid colon unchanged diverticulitis. No perforation or abscess. 2. Several small hepatic cysts. No followup indicated. ED physician reviewed radiology report. Abdominal Pain Male Course/Dx - Course Course Of Treatment: Patient with recently diagnosed diverticulitis who stopped antibiotics and pain has returned. His CT scan is consistent with unchanged diverticulitis in the mid:. His white count has elevated. He was given IV antibiotics here and will be admitted to the hospitalist team for further. - Diagnoses Differential Diagnosis/HQI/PQRI: Other - Diverticulitis, abdominal abscess, perforation Provider Diagnoses: Diverticulitis, Left sided abdominal pain - Provider Notifications Discussed Care Of Patient With: Claude Mcdonnell Time Discussed With Above Provider: 23:36 Instructed by Provider To: Admit As Inpatient Discharge - Sign-Out/Discharge Documenting (check all that apply): Patient Departure - Admit Patient Received Moderate/Deep Sedation with Procedure: No - Discharge Plan Condition: Stable Disposition: ADMITTED TO [facility] - Billing Disposition and Condition Condition: STABLE Disposition: Admitted to [facility] - Attestation Statements Document Initiated by Scribe: Yes Documenting Scribe: Kiley Doty Provider For Whom Scribe is Documenting (Include Credential): Satish Hernandez MD Scribe Attestation: Kiley Bautista, scribed for Satish Hernandez MD on 11/26/18 at 0337. Scribe Documentation Reviewed: Yes Provider Attestation: The documentation as recorded by the scribe, Kiley Doty accurately reflects the service I personally performed and the decisions made by me, Satish Hernandez MD Status of Scribe Document: Viewed
[2018-11-26] MEDS ORDERED: Morphine INJ* 2 MG/ML 1 ML SYRINGE (TWO MG - NEW SYRINGE VERSION) IV PRN (01:51)
[2018-11-26] MEDS ORDERED: oxyCODONE/Acetamin 5/325 MG* TAB PO PRN (01:52)
[2018-11-26] MEDS ORDERED: Ondansetron INJ* 2 MG/ML VIAL IV PRN (01:53)
[2018-11-26] MEDS ORDERED: ALPRAZolam TAB* 0.25 MG PO PRN (01:55)
[2018-11-26] MEDS ORDERED: Cyclobenzaprine TAB* 10 MG PO PRN (01:55)
--- NOTE | 2018-11-26 03:37 | HP ---
CC: Dr. Tobin * HISTORY AND PHYSICAL: DATE OF ADMISSION: 11/25/18 PRIMARY CARE PROVIDER: Dr. Tobin. HEALTHCARE PROXY: None. Does not want to identify a healthcare proxy at this time. CODE STATUS: Full. SOURCE OF INFORMATION: History obtained from interview with the patient and review of past medical records. RELIABILITY: Excellent. CHIEF COMPLAINT: Abdominal pain. HISTORY OF PRESENT ILLNESS: This is a 57-year-old man with past medical history of multiple episodes of diverticulitis, recent admission at [facility] from 09/30 to 11/16/18 with an episode of diverticulitis, treated with ciprofloxacin and Flagyl with rapid improvement. Discharged to complete p.o. Cipro, Flagyl for 5 additional days, finished on the morning of the 11/22/18. He had felt "fine" until today, woke up feeling gassy with bloating, started developing mild amount of pain with increased pain throughout the day. He was brought in later in the night after an episode of hematochezia, which was the first time he has had an episode of hematochezia. He had no bowel movements since that time. He has had no lightheadedness. His pain is currently at a 6/10, similar to his previous episodes. He has had some nausea, but no vomiting. His last colonoscopy was performed by Dr. Ornelas 2 to 3 years prior to this presentation. Additionally, he was evaluated by Dr. Hudson 3 years prior to presentation, did not feel surgery appropriate at that time; however, he has had multiple episodes of diverticulitis since that evaluation. This presenting episode is his 7th episode of diverticulitis. In the emergency room, a CAT scan was performed, received pain medication and a dose of Zosyn. Hospitalist were consulted for admission. PAST MEDICAL HISTORY: Includes: 1. Atrial fibrillation, rapid ventricular response, first episode was during his hospital stay earlier this month. 2. Depression and anxiety. 3. Diverticulitis, 7 episodes since 1999. 4. GERD. 5. IBD. 6. Hypertension. 7. History of DVT and PE. PAST SURGICAL HISTORY: 1. Status post left foot surgery in 2008. 2. Revision of left foot surgery. 3. Sinus surgery in 1996. 4. Left knee surgery in 2016. 5. Right foot surgery in 2018. MEDICATIONS: Have not changed since his discharge on the 11/16/[address] Montero , include: 1. Apixaban 5 mg twice daily. 2. Metoprolol succinate 25 mg daily. 3. Sertraline 100 mg at night. 4. Alprazolam 0.25 mg nightly. 5. Cyclobenzaprine 10 mg at bedtime as needed for back spasm. 6. Azelastine as needed for allergies. 7. Hyoscyamine 0.375 mg twice daily. 8. Melatonin 3 mg at bedtime. 9. Montelukast 10 mg daily. 10. Omeprazole 20 mg daily. 11. Ibuprofen 600 mg 3 times a day as needed for pain. ALLERGIES: 1. IODINE. 2. SHELLFISH. 3. SULFA. 4. CONTRAST DYE. FAMILY HISTORY: Mother with breast cancer. Father had an NC at age 70 and multiple CVAs. SOCIAL HISTORY: Works at [employer]. Drinks 2 beers per week. No tobacco. REVIEW OF SYSTEMS: As per HPI, otherwise all other systems negative. PHYSICAL EXAMINATION GENERAL: Interactive, pleasant, in no apparent distress. VITAL SIGNS: In the emergency room, 144/94, heart rates in the 60s, 97% on room air, T-max 99 degrees Fahrenheit. HEENT: Oropharynx is clear. Moist mucous membranes. Sclerae are anicteric. LUNGS: Clear to auscultation bilaterally. HEART: Has regular rate and rhythm. No murmurs, rubs, or gallops. ABDOMEN: Soft, nondistended. He has tenderness to palpation, greatest in the right lower quadrant as well as suprapubic area. Does have tenderness in the left lower quadrant in proportion to right lower quadrant. EXTREMITIES: Warm and well perfused. He has no clubbing, cyanosis, or edema. NEUROLOGIC: His cranial nerves II through XII are intact. He has no apparent anxiety, agitation, or depression. LABORATORY DATA/DIAGNOSTIC STUDIES: Labs reviewed. Notable for CRP 13, decreased from previous stay of 33. His white count is 12.1, increased from discharge on the 11/16/18. Lactic acid 0.7. Data reviewed. CT abdomen and pelvis, mild sigmoid colon, unchanged diverticulitis, no perforation or abscess. Several small hepatic cysts, no followup indicated. ASSESSMENT AND PLAN: A 57-year-old man with multiple episodes of diverticulitis , returning to hospital with increased abdominal pain after finishing his antibiotics, found with persistent diverticulitis on CAT scan. 1. Diverticulitis. Unclear if CT imaging is reflective of the disease state; however, his pain is greatly improved after finishing his course of antibiotics and his white blood cell count is elevated as well. Received a dose of Zosyn in the emergency room. We will continue with Cipro, Flagyl IV in the morning, as he had rapid response. I suspect he needed a longer course of antibiotics until complete resolution. Additionally, I have placed an infectious disease consultation for this patient. I would recommend outpatient surgery consultation as I discussed this with the patient. We discussed that surgical intervention at this time would be unlikely in the setting of active infection as well as current blood thinner use. 2. Hematochezia. Check CBC in the morning. I suspect in the setting of diverticulitis. 3. Atrial fibrillation. One episode of hematochezia as indicated above earlier today. We will continue on apixaban. However, I do note from Dr. Montero's discharge recommendation, his CHADS-VASC is low if not 0, may not need to continue this in the future. Any additional evidence of bleeding, I will discontinue blood thinner at that time. Continue metoprolol for rate control. 4. DVT prophylaxis. Apixaban as indicated above. 5. Code status is full. [id number]/[facility] #: [id number] HERNANDEZ
[2018-11-26 05:39] LABS: ABS Basophils 0.1 10^3/ul (0-0.2); ABS Eosinophils 0.2 10^3/ul (0-0.6); ABS Monocytes 0.7 10^3/ul (0-0.8); ABS Neutrophils 7.6 10^3/ul (1.5-7.7); Hematocrit 39 % (42-52); Hemoglobin 13.5 g/dL (14.0-18.0); Lymphocyte % 10.1 %; Mean Corpuscular HGB Conc 35 g/dL (31-36); Mean Corpuscular Hemoglobin 32 pg (27-31); Mean Corpuscular Volume 92 fL (80-94); Mean Platelet Volume 7.8 fL (7.4-10.4); Platelet Count 246 10^3/uL (150-450); Red Blood Count 4.24 10^6 /uL (4.18-5.48); Red Cell Distribution Width 14 % (10.5-15); White Blood Count 9.5 10^3/uL (3.5-10.8)
[2018-11-26] MEDS ORDERED: Ciprofloxacin 400MG IVPREMIX(* 400 MG/200 ML BAG IVPB SCH (06:00)
[2018-11-26] MEDS: metroNIDAZOLE IV 500 MG/100ML* 500 MG/100 ML BAG IVPB SCH ×2 (07:38→15:25)
[2018-11-26] MEDS: Sertraline* 100 MG TAB PO SCH (08:21)
[2018-11-26] MEDS: Montelukast Sodium TAB* 10 MG PO SCH (08:21)
[2018-11-26] MEDS: Apixaban* 5 MG TAB PO SCH ×2 (08:21→20:42)
[2018-11-26] MEDS: Metoprolol Succinate XL TAB* 25 MG PO SCH (08:21)
--- NOTE | 2018-11-26 09:36 | PN ---
Subjective Date of Service: 11/26/18 Interval History: Brief update - see admission note from this AM for details. Hgb with slight decrease but also received IVF. Leukocytosis resolved. Pt reporting increased appetite. States his pain is currently 1/10. No further BMs in hospital. Objective Active Medications: Acetaminophen (Tylenol Tab*) 650 mg PO Q6H PRN PRN Reason: PAIN Alprazolam (Xanax Tab*) 0.25 mg PO BEDTIME PRN PRN Reason: ANXIETY Apixaban (Eliquis*) 5 mg PO BID [facility] Last Admin: 11/26/18 08:21 Dose: 5 mg Cyclobenzaprine HCl (Flexeril Tab*) 10 mg PO BEDTIME PRN PRN Reason: SPASMS Ciprofloxacin/Dextrose (Cipro 400 Mg Ivpremix(*)) 400 mg in 200 mls @ 200 mls/ hr IVPB Q12H [facility]; Protocol Last Admin: 11/26/18 06:22 Dose: 200 mls/hr Metronidazole/Sodium Chloride (Flagyl 500 Mg Ivpb*) 500 mg in 100 mls @ 100 mls /hr IVPB Q8H [facility] Last Admin: 11/26/18 07:38 Dose: 100 mls/hr Melatonin (Melatonin) 3 mg PO BEDTIME [facility] Metoprolol Succinate (Toprol Xl Tab*) 25 mg PO DAILY [facility] Last Admin: 11/26/18 08:21 Dose: 25 mg Montelukast Sodium (Singulair Tab*) 10 mg PO QAM [facility] Last Admin: 11/26/18 08:21 Dose: 10 mg Morphine Sulfate (Morphine Inj (Syringe))*) 2 mg IV Q4H PRN PRN Reason: PAIN Last Admin: 11/26/18 06:31 Dose: 2 mg Ondansetron HCl (Zofran Inj*) 4 mg IV Q4H PRN PRN Reason: NAUSEA/VOMITING Oxycodone/Acetaminophen (Percocet 5/325 Tab*) 1 tab PO Q4H PRN PRN Reason: PAIN Sertraline HCl (Zoloft*) 100 mg PO DAILY [facility] Last Admin: 11/26/18 08:21 Dose: 100 mg Vital Signs - 8 hr 11/26/18 11/26/18 11/26/18 02:36 02:40 02:41 Temperature 98.3 F Pulse Rate 87 Respiratory 16 18 Rate Blood Pressure 145/94 145/94 (mmHg) O2 Sat by Pulse 98 Oximetry 11/26/18 11/26/18 11/26/18 02:45 03:43 03:45 Temperature 97.9 F 97.8 F Pulse Rate 74 55 Respiratory 16 18 18 Rate Blood Pressure 143/90 155/97 (mmHg) O2 Sat by Pulse 99 98 Oximetry 11/26/18 11/26/18 11/26/18 03:50 06:31 07:27 Temperature 98.1 F Pulse Rate 52 Respiratory 18 18 17 Rate Blood Pressure 119/71 (mmHg) O2 Sat by Pulse 99 Oximetry 11/26/18 08:20 Temperature Pulse Rate Respiratory 18 Rate Blood Pressure (mmHg) O2 Sat by Pulse Oximetry Oxygen Devices in Use Now: None Appearance: well appearing, friendly and interactive, nontoxic Eyes: No Scleral Icterus, PERRLA Ears/Nose/Mouth/Throat: Clear Oropharnyx, Mucous Membranes Moist Neck: NL Appearance and Movements; NL JVP Respiratory: Symmetrical Chest Expansion and Respiratory Effort, Clear to Auscultation Cardiovascular: RRR Abdominal: - - mild ttp in RLQ and LLQ, no guarding/rebound Extremities: No Edema, No Clubbing, Cyanosis Skin: No Rash or Ulcers Neurological: Alert and Oriented x 3 Result Diagrams: 11/26/18 05:22 11/25/18 22:26 Additional Lab and Data: Lab Results 11/25/18 11/25/18 11/25/18 Range/Units 22:26 22:26 22:26 WBC 12.1 H (3.5-10.8) 10^3/uL RBC 4.62 (4.18-5.48) 10^6 /uL Hgb 14.2 (14.0-18.0) g/dL Hct 42 (42-52) % MCV 91 (80-94) fL MCH 31 (27-31) pg MCHC 34 (31-36) g/dL RDW 14 (10.5-15) % Plt Count 273 (150-450) 10^3/uL MPV 7.9 (7.4-10.4) fL Neut % (Auto) 80.3 % Lymph % (Auto) 9.8 % [place] % (Auto) 7.8 % Eos % (Auto) 1.7 % Baso % (Auto) 0.4 % Absolute Neuts (auto) 9.7 H (1.5-7.7) 10^3/ul Absolute Lymphs (auto) 1.2 (1.0-4.8) 10^3/ul Absolute Monos (auto) 0.9 H (0-0.8) 10^3/ul Absolute Eos (auto) 0.2 (0-0.6) 10^3/ul Absolute Basos (auto) 0.1 (0-0.2) 10^3/ul Absolute Nucleated RBC 0.0 10^3/ul Nucleated RBC % 0.0 INR (Anticoag Therapy) 1.16 H (0.82-1.09) Sodium 139 (135-145) mmol/L Potassium 4.0 (3.5-5.0) mmol/L Chloride 104 (101-111) mmol/L Carbon Dioxide 30 (22-32) mmol/L Anion Gap 5 (2-11) mmol/L BUN 15 (6-24) mg/dL Creatinine 1.05 (0.67-1.17) mg/dL Est GFR ( Amer) 88.1 (>60) Est GFR (Non-Af Amer) 72.8 (>60) BUN/Creatinine Ratio 14.3 (8-20) Glucose 72 (70-100) mg/dL Lactic Acid (0.5-2.0) mmol/L Calcium 9.6 (8.6-10.3) mg/dL Total Bilirubin 0.40 (0.2-1.0) mg/dL AST 17 (13-39) U/L ALT 18 (7-52) U/L Alkaline Phosphatase 55 (34-104) U/L C-Reactive Protein 13.33 H (<8.01) mg/L Total Protein 7.0 (6.4-8.9) g/dL Albumin 4.5 (3.2-5.2) g/dL Globulin 2.5 (2-4) g/dL Albumin/Globulin Ratio 1.8 (1-3) Lipase 34 (11.0-82.0) U/L 11/25/18 Range/Units 22:26 WBC (3.5-10.8) 10^3/uL RBC (4.18-5.48) 10^6 /uL Hgb (14.0-18.0) g/dL Hct (42-52) % MCV (80-94) fL MCH (27-31) pg MCHC (31-36) g/dL RDW (10.5-15) % Plt Count (150-450) 10^3/uL MPV (7.4-10.4) fL Neut % (Auto) % Lymph % (Auto) % [place] % (Auto) % Eos % (Auto) % Baso % (Auto) % Absolute Neuts (auto) (1.5-7.7) 10^3/ul Absolute Lymphs (auto) (1.0-4.8) 10^3/ul Absolute Monos (auto) (0-0.8) 10^3/ul Absolute Eos (auto) (0-0.6) 10^3/ul Absolute Basos (auto) (0-0.2) 10^3/ul Absolute Nucleated RBC 10^3/ul Nucleated RBC % INR (Anticoag Therapy) (0.82-1.09) Sodium (135-145) mmol/L Potassium (3.5-5.0) mmol/L Chloride (101-111) mmol/L Carbon Dioxide (22-32) mmol/L Anion Gap (2-11) mmol/L BUN (6-24) mg/dL Creatinine (0.67-1.17) mg/dL Est GFR ( Amer) (>60) Est GFR (Non-Af Amer) (>60) BUN/Creatinine Ratio (8-20) Glucose (70-100) mg/dL Lactic Acid 0.7 (0.5-2.0) mmol/L Calcium (8.6-10.3) mg/dL Total Bilirubin (0.2-1.0) mg/dL AST (13-39) U/L ALT (7-52) U/L Alkaline Phosphatase (34-104) U/L C-Reactive Protein (<8.01) mg/L Total Protein (6.4-8.9) g/dL Albumin (3.2-5.2) g/dL Globulin (2-4) g/dL Albumin/Globulin Ratio (1-3) Lipase (11.0-82.0) U/L Assess/Plan/Problems-Billing Assessment: 57M with HTN, depression/anxiety, recurrent diverticulitis, GERD, IBS, presents with recurrence of LLQ pain with one episode of BRBPR, found with leukocytosis. - Patient Problems (1) Diverticulitis Comment: Improving. - switch cipro/Flagyl to PO today (2) Paroxysmal A-fib Comment: Had very brief episode of afib during last hospitalization. Was discharged in NSR on rate control and AC. If patient has persistence of BRBPR or will need surgery as an outpatient (for recurrent diverticulitis), would favor stopping therapeutic anticoagulation given very low CHADSVASC - 0 or 1, so likely will not need AC [employer]. (3) Anxiety and depression Comment: cont sertraline 100mg nightly, alprazolam prn
[2018-11-26] MEDS: Acetaminophen TAB* 325 MG PO PRN ×2 (10:53→20:45)
--- NOTE | 2018-11-26 17:07 | CONS ---
CONSULTATION REPORT: DATE OF CONSULT: 11/26/18 PRIMARY CARE PROVIDER: Dr. Dulce Tobin. PHYSICIAN REQUESTING CONSULTATION: Dr. Claude Mcdonnell. PROVIDER: Eva Ge NP (My attending is Dr. Lázaro Duffy*) . REASON FOR CONSULT: Recurrent diverticulitis. IMPRESSION: 1. Recurrent diverticulitis. The patient has previously been treated with 10 to 14 day courses of antibiotics for diverticulitis with multiple reoccurrences. He has recently had reoccurrences of diverticulitis in a short period of time. Approximately 1.5 weeks ago, he was treated for approximately 8 days with antibiotics and had reoccurrence within a day of stopping his antibiotics. He reports quickly advancing his diet after discharge. He is currently on IV Cipro and Flagyl. He received a dose of Zosyn in the emergency room. Abdomen CT scan showing mid sigmoid colon unchanged diverticulitis and no perforation or abscess. He was seen in the past by Dr. Hudson approximately 3 years ago, who felt that surgery was not appropriate at that time. The patient also reports having a colonoscopy by Dr. Ornelas 2 to 3 years ago and states that he had no significant findings other than some polyps that were not removed. 2. Atrial fibrillation. 3. Irritable bowel syndrome. 4. Hypertension. PLAN/RECOMMENDATIONS: Recommend consulting Surgery to see if surgery is appropriate at this time or not, this could be done outpatient. Additionally, he should have a nutrition consult and slowly advance his diet from clears to full liquids to a low-residue prior to returning to a regular diet as the quick advancing of his diet may have contributed to the return of his symptoms. Additionally, he can be continued on Cipro and Flagyl for a total of 10 days at discharge. HISTORY OF PRESENT ILLNESS: Mr. Land is a 57-year-old male with past medical history significant for atrial fibrillation, depression, anxiety, recurrent diverticulitis, GERD, IBS, hypertension, DVT and PE, who has had 7 episodes of diverticulitis in the past 19 years with 2 episodes in the last 1-1/ 2 weeks. He reports completing a short course (8 days) of Cipro and Flagyl on 11/23/18. He states that his pain returned on 11/24/18, the day after completing his antibiotics. He reports that he did not slowly transition his diet back to a regular diet and advanced his diet quite quickly to a regular diet. He reports waking up feeling gassy and bloated with lower abdominal pain. Denies any fevers or chills, joint pain, muscle pain. He reports intermittent diarrhea and constipation. He reports lower abdominal pain , urinary frequency. Denies any recent travel. He reports some bright red blood-tinged stool yesterday. Due to his symptoms, he presented to the emergency room for evaluation. While in the emergency room, he had a CT scan of his abdomen showing "mild sigmoid colon diverticulitis that was unchanged. No perforation or abscess seen ". He had labs that were notable for a CRP of 13 which was decreased from the previous stay of 33, mild leukocytosis with white blood cell count of 12,100 which has increased from his discharge on 11/16/18, lactic acid 0.7. He was referred to the hospitalist service for admission. During his hospitalization, his leukocytosis has resolved with a white blood cell count of 9.5. He has been receiving IV hydration, Zosyn, and Flagyl. He is tolerating a clear liquid diet. Continues to have some abdominal pain. This was relieved by the IV morphine that he received this morning. PAST MEDICAL HISTORY: 1. Paroxysmal atrial fibrillation. 2. Depression. 3. Anxiety. 4. Diverticulitis with 7 episodes since 1999. 5. GERD. 6. Irritable bowel syndrome. 7. Hypertension. 8. History of DVT and PE. 9. History of MRSA skin infection in 2009. PAST SURGICAL HISTORY: 1. Status post left foot surgery in 2008. 2. Status post revision of left foot surgery. 3. Status post sinus surgery in 1996. 4. Status post left knee surgery in 2016. 5. Status post right knee surgery in 2018. MEDICATIONS: Home medications include: 1. Apixaban 5 mg by mouth twice daily. 2. Metoprolol succinate 25 mg by mouth daily. 3. Sertraline 100 mg by mouth daily. 4. Alprazolam 0.25 mg by mouth nightly. 5. Cyclobenzaprine 10 mg by mouth at bedtime as needed for back spasms. 6. Azelastine 0.1% to both nares twice daily. 7. Melatonin 3 mg by mouth at bedtime. 8. Singulair 10 mg by mouth daily at bedtime. 9. Omeprazole 20 mg by mouth daily at bedtime. 10. Ibuprofen 600 mg 3 times daily as needed for pain. 11. Epinephrine 0.3 mg intramuscularly as needed for allergy symptoms. Hospital medications: 1. Acetaminophen 650 mg by mouth every 6 hours as needed for fever or pain. 2. Xanax 0.25 mg by mouth daily at bedtime as needed for anxiety. 3. Eliquis 5 mg by mouth twice daily. 4. Cipro 400 mg intravenous every 12 hours. 5. Cyclobenzaprine 10 mg by mouth daily at bedtime as needed for muscle spasms. 6. Melatonin 3 mg by mouth at bedtime. 7. Metoprolol succinate 25 mg by mouth daily. 8. Flagyl 500 mg IV every 8 hours. 9. Singulair 10 mg by mouth every morning. 10. Morphine sulfate 2 mg IV every 4 hours as needed for pain. 11. Zofran 4 mg IV every 4 hours as needed for nausea. 12. Percocet 5/325 one tablet by mouth every 4 hours as needed for pain. 13. Zoloft 100 mg by mouth daily. ALLERGIES: IODINE causes hives, SHELLFISH causes anaphylaxis, SULFA DRUGS cause hives, CONTRAST DYE caused anaphylactic shock. FAMILY HISTORY: Father with a history of HI in his 70s and history of CVA. Younger sister with a history of diabetes mellitus type 1. Older sister with a history of diabetes mellitus type 2. Mother with a history of brain cancer. Younger sister with a history of brain tumor. He denies any family history of recurrent or resistant infections. SOCIAL HISTORY: He reports drinking 1 to 2 alcoholic beverages weekly except for when he is taking Flagyl. Denies tobacco or recreational drug use. REVIEW OF SYSTEMS: I performed a 10-point review of systems. All the pertinent positives and negatives are mentioned in the history of present illness. The remaining review of systems are negative. He denies recent travel. PHYSICAL EXAM: Vital Signs: Temperature 98.1, heart rate 52, respiratory rate 17, O2 sat 99% on room air, blood pressure 119/71. General Appearance: The patient is alert, pleasant, and appears to be in no acute distress. Head: Normocephalic, atraumatic. EENT: Pupils are equal and reactive to light. Extraocular movements are intact. Mucous membranes are moist. No conjunctival hemorrhage. Neck is supple. No lymphadenopathy. Neurological: Alert and oriented x4. Cranial nerves II through XII are grossly intact. Cardiovascular : Heart rate is regular. No murmurs, rubs, or gallops heard. Lungs: Sounds clear to auscultation bilaterally. Abdomen: Bowel sounds active x4. Abdomen is soft with diffuse mostly left-sided tenderness with palpation. Extremities: No lower extremity edema. DP and PT pulses are 2+ and symmetric. Musculoskeletal: No clubbing or cyanosis noted. The patient exhibits good strength in all extremities. Psychological: Calm and cooperative. Skin: No rashes or abnormalities seen. DIAGNOSTIC STUDIES/LAB DATA: Labs from 11/25/18: Sodium 139, potassium 4.0, chloride 104, CO2 of 30, BUN 15, creatinine 1.05, glucose 72. CRP 13.33. Labs from today: White blood cell count 9.5, hemoglobin 13.5, hematocrit 39, platelet count 276. Please see impression and recommendations outlined above. Thank you for asking us to see Mr. Land in consultation. TIME SPENT: Time for this consultation was approximately 40 minutes, greater than half of that was spent with the patient discussing medications, past medical history, the events leading to his arrival at the hospital, and performing a physical examination. The case has been reviewed with the attending, Dr. Duffy, who agrees with the plan of care. Reviewed by LETICIA SAEZ 11/30/18 1928 [id number]/[facility] #: [id number] HERNANDEZ
[2018-11-26] MEDS: metroNIDAZOLE * 500 MG TABLET PO SCH (20:42)
[2018-11-26] MEDS: Ciprofloxacin TAB* 500 MG PO SCH (20:42)
[2018-11-26] MEDS ORDERED: Melatonin 3 MG TAB PO SCH (21:00)
[2018-11-27] MEDS: metroNIDAZOLE * 500 MG TABLET PO SCH (05:50)
[2018-11-27 06:24] LABS: Hematocrit 41 % (42-52); Hemoglobin 14.2 g/dL (14.0-18.0); Mean Corpuscular HGB Conc 35 g/dL (31-36); Mean Corpuscular Hemoglobin 32 pg (27-31); Mean Corpuscular Volume 92 fL (80-94); Mean Platelet Volume 7.7 fL (7.4-10.4); Platelet Count 229 10^3/uL (150-450); Red Blood Count 4.46 10^6 /uL (4.18-5.48); Red Cell Distribution Width 13 % (10.5-15); White Blood Count 5.4 10^3/uL (3.5-10.8)
[2018-11-27 07:54] VITALS: BP 121/79
[2018-11-27] MEDS: Apixaban* 5 MG TAB PO SCH (08:53)
[2018-11-27] MEDS: Sertraline* 100 MG TAB PO SCH (08:55)
[2018-11-27] MEDS: Ciprofloxacin TAB* 500 MG PO SCH (08:55)
[2018-11-27] MEDS: Montelukast Sodium TAB* 10 MG PO SCH (08:55)
[2018-11-27] MEDS: Metoprolol Succinate XL TAB* 25 MG PO SCH (08:55)
--- NOTE | 2018-11-27 13:01 | DS ---
CC: Dulce Tobin MD; Dr. Alexandre Hudson; Eva Brown NP* DISCHARGE SUMMARY: DATE OF ADMISSION: 11/25/18 DATE OF DISCHARGE: 11/27/18 PRIMARY CARE PHYSICIAN: Dulce Tobin MD SURGEON: Dr. Alexandre Hudson. PRIMARY DIAGNOSIS: Recurrent diverticulitis. SECONDARY DIAGNOSES: 1. Atrial fibrillation. 2. Anxiety/depression. CONSULTS: Infectious Disease, Eva Brown NP. DISCHARGE MEDICATIONS: 1. Ciprofloxacin 500 twice a day for 9 more days. 2. Metronidazole 500 3 times a day for 9 more days. 3. Alprazolam 0.25 at bedtime as needed. 4. Apixaban 5 mg twice a day. 5. Cyclobenzaprine 10 mg at bedtime as needed. 6. Melatonin 3 mg at bedtime as needed. 7. Metoprolol succinate 25 mg daily. 8. Montelukast 10 mg daily. 9. Sertraline 100 mg daily. HISTORY OF PRESENT ILLNESS: Mr. Land is a 57-year-old man with recurrent diverticulitis, depression, anxiety, paroxysmal atrial fibrillation 1 episode on temporary anticoagulation, who presents to [facility] [place] after discharge for admission for diverticulitis with recurrent diverticulitis. He reports that he finished his course of antibiotics and felt fine for a few days until he woke up on day of presentation feeling gassy and bloated. He started developing mild amount of pain with progression throughout the day. He was brought in that night after an episode of hematochezia noting bright red blood covering his stool, which was the first time he has experienced this. He has had no bowel movement since that time. He denied lightheadedness, palpitations, fatigue or shortness of breath. His pain on presentation was 6/10 in his lower abdomen, similar to previous episodes of diverticulitis flares. He had some nausea, but no vomiting, so he was admitted to the hospital for IV antibiotics and monitoring of his hemoglobin. HOSPITAL COURSE: In the emergency room, CT scan showed recurrence of diverticulitis. He was given pain medication and a dose of Zosyn and admitted to the hospital. He was switched to IV Cipro, Flagyl for 1 day, but given his rapid improvement in symptoms and appetite and resolution of his leukocytosis, he was able to be switched to oral Cipro, Flagyl after 1 day of admission which he tolerated well without recurrence of pain or leukocytosis. He had no further bloody bowel movements while hospitalized. His hemoglobin remained within normal limits. He was seen by Infectious Disease, who recommended a slow advancement of diet as well as longer course of oral antibiotics with close follow up with Surgery for possible surgical intervention given frequent recurrence of diverticulitis. On day of discharge, the patient reports 1/10 abdominal pain to deep palpation , but otherwise has been tolerating oral intake without recurrence of nausea or bloody bowel movements. A full 10-point review of systems was performed and pertinent positives and negatives are listed in the hospital course. He denies lightheadedness, palpitations or shortness of breath. PHYSICAL EXAMINATION: Afebrile, heart rate 50, blood pressure 121/79, respiratory rate 12, oxygen saturation 100% on room air. In general, well- appearing man, friendly, alert, conversant. No pallor. HEENT: Moist mucous membranes. Neck: Supple. Full range of motion without pain. Cardiovascular: Regular rate and rhythm. No murmurs, gallops, rubs. Lungs: Clear to auscultation bilaterally. Abdomen: Soft, nontender, nondistended. Possible mild tenderness to deep palpation in the left lower quadrant. No guarding or rebound. Lower Extremities: Warm and well-perfused without evidence of edema. Neuro: CN II through XII intact. Gait normal. PERTINENT DIAGNOSTIC DATA: Abdomen/pelvis CT on 11/25/18 showed mid sigmoid colon unchanged diverticulitis. No perforation or abscess, several small hepatic cysts. No followup indicated. DISCHARGE PLAN: The patient is to follow up in Surgery Clinic. An appointment was made for him for this Saturday. He will be continued on a longer course of oral antibiotics, given Cipro and Flagyl for 9 more days to complete a full 11- to 12- day course of antibiotics. He should also continue to follow up with his primary care physician. He also has an appointment scheduled with Cardiology for possible discontinuation of his anticoagulation. He was educated extensively on return precautions, which include but are not limited to recurrence of fever or severe abdominal pain or blood loss. He is to resume a healthy diet, high in fiber with a normal level of activity as tolerated. DISPOSITION: To home. CONDITION: Good. TIME SPENT: Approximately 60 minutes spent on discharge of this patient, more than half of which was spent with care coordination at bedside for interview and exam. [id number]/[facility] #: [id number] HERNANDEZ
== END 2018-11-27 11:10 | disposition home or self-care (01) ==
LOC: ED 21:30 → SSU 11-26 01:53 → INTOOBSV 11-26 01:53 → SSU 11-26 02:43
PROVIDERS: ADMIT Internal Medicine; ATTEND Internal Medicine
DX: K57.92 Diverticulitis of intestine, part unspecified, without perforation or abscess without bleeding (principal); I48.91 Unspecified atrial fibrillation; F41.9 Anxiety disorder, unspecified; F32.9 Major depressive disorder, single episode, unspecified; Z79.899 Other long term (current) drug therapy; K21.9 Gastro-esophageal reflux disease without esophagitis; K52.3 Indeterminate colitis; I10 Essential (primary) hypertension; Z86.718 Personal history of other venous thrombosis and embolism; Z86.711 Personal history of pulmonary embolism; Z88.2 Allergy status to sulfonamides; K92.1 Melena; Z86.14 Personal history of Methicillin resistant Staphylococcus aureus infection
CPT/HCPCS: 36415; 74176; 80053; 83605; 83690; 85025; 85027; 85610; 86140; 96365; 96375; 96376; 99283; A9270-GY; G0378; J0744; J2270; J2405; J2543; J3490

== ENCOUNTER 2019-03-10 05:45 | Inpatient (IN) | payer BC ==
--- NOTE | 2019-02-24 16:07 | HP ---
AMENDED REPORT NOW INCLUDES DESIGNATED COSIGNER CC: Dr. Tobin; Dr. Toribio * PREOPERATIVE HISTORY AND PHYSICAL: DATE OF ADMISSION/SURGERY: This patient is scheduled for AA admission by Dr. Hudson on 03/10/19. DATE OF PREOPERATIVE HISTORY AND PHYSICAL: 02/24/19. ATTENDING SURGEON: Dr. Alexandre Hudson * (dictated by Dulce Zepeda NP). CHIEF COMPLAINT: Recurrent diverticulitis. HISTORY OF PRESENT ILLNESS: The patient is a 58-year-old male with a history of 7 episodes of diverticulitis. He was hospitalized at [facility] from 11/14/18 to 11/16/18 after presenting to the emergency room with left lower quadrant abdominal pain and tachycardia. He was found to be in atrial fibrillation and hypotensive. He was admitted, treated with IV antibiotics, IV fluid repletion and a transient Cardizem drip and had spontaneously converted to normal sinus rhythm. He started Toprol-XL on discharge and has been maintaining normal sinus rhythm according to Dr. Toribio's most recent note from Cardiology. He was initially placed on Eliquis, but that has since been discontinued. He has a history of pulmonary embolism and deep vein thrombosis after left foot surgery in 2009. He had CAT scans while he was hospitalized which have been reviewed by Dr. Hudson and both of them were done without contrast and there were no obvious complications of diverticulitis noted according to Dr. Hudson' note. The patient was treated with oral antibiotics after discharge. Currently, he is feeling generally well with a fair appetite. He denies any dysuria or fever or chills; he states that he has occasional constipation for 2 days and then has regular formed stools thereafter. He has not noticed any blood in the stools. He reports mild abdominal discomfort when he feels full. He has not had any recurrent episodes of bright red blood per rectum since 11/25/18. Dr. Hudson has examined the patient and reviewed his imaging and details from his hospitalization in November 2018. He has recommended laparoscopic sigmoid colectomy and we discussed the nature of the surgical procedure, the indications, risks, benefits and alternatives. The patient has been cleared from Cardiology by Dr. Toribio to proceed with the planned surgery. Today, I reviewed the typical hospitalization and postoperative recovery; I instructed the patient in a bowel cleansing prep to be taken on the day before surgery consisting of clear liquid diet, CoLyte laxative, neomycin and metronidazole. The patient has had a chance to ask questions and stated that he understands the information and is satisfied with the answers given to his questions. He will sign surgical consent on the day of surgery. PAST MEDICAL HISTORY: Hypertension, provoked deep vein thrombosis and pulmonary embolism, provoked atrial fibrillation, recurrent sigmoid diverticulitis, gastroesophageal reflux disease, depression and anxiety. PAST SURGICAL HISTORY: Inguinal hernia repair in 2000, left foot surgery in 2009 with revision in 2011, multiple knee surgeries, rhinoplasty, right foot surgery in 2018, sinus surgery in 1996. MEDICATIONS: 1. Aspirin 81 mg p.o. daily, which he will continue in the perioperative period. 2. Trazodone 50 mg daily at bedtime p.r.n. 3. Montelukast 10 mg p.o. daily. 4. Azelastine nasal spray 137 mcg per spray 1 squirt each nostril daily. 5. Sertraline 100 mg p.o. daily. 6. Alprazolam 0.25 mg one half to one tablet p.r.n., he has not taken any recently. 7. Cyclobenzaprine 10 mg 1 tablet 2 to 3 times a day p.r.n., none recently. 8. Tylenol 650 mg every 4 hours as needed for pain. 9. Ibuprofen 600 mg t.i.d. as needed for pain. 10. Vitamin C 500 mg p.o. daily. ALLERGIES: BACTRIM caused rash, IODINATED DIAGNOSTIC AGENTS such as CT CONTRAST caused respiratory distress and throat swelling, shellfish causes itching. FAMILY HISTORY: Significant for diabetes, heart disease and stroke. Mother with history of breast and brain cancer. Father with history of myocardial infarction and stroke. Siblings, 2 sisters with diabetes. No known anesthesia complications, bleeding tendencies or clotting disorders. 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 He has never been a smoker. He drinks approximately 2 beers per week and exercises regularly, but is limited by knee pain. REVIEW OF SYSTEMS: Constitutional: No fevers, chills, excessive fatigue, or weight loss. Endocrine: No diabetes or thyroid disease. Hematologic: No easy bruising or bleeding. No history of blood transfusions. Respiratory: No dyspnea on exertion. No chronic cough. Cardiovascular: No chest pain, palpitations, or syncopal episodes. He has been cleared by Dr. Toribio to proceed with the recommended surgery. EKG on 12/16/18 was normal sinus rhythm. Echocardiogram, 11/14/18, ejection fraction 60% to 65%. Stress test, 01/19/19, normal cardiac chemical nuclear stress test, no evidence of ischemia. Dr. Toribio recommended continuing the patient's beta-cleveland in the perioperative period. Gastrointestinal: As described in history of present illness, recurrent diverticulitis, intermittent constipation. No nausea or vomiting. No blood per rectum. Fairly good appetite. Genitourinary: No dysuria. No air noted with urinary stream. Musculoskeletal: Chronic knee pain and right ankle pain with a diagnosis of peroneal tendonitis right lower extremity. Integumentary: No chronic rashes or skin changes. Neurologic: No headache or blurred vision. No areas of focal weakness or numbness. General: No previous anesthesia complications. No history of blood transfusions. As previously mentioned, history of provoked deep vein thrombosis and pulmonary embolism in 2009. PHYSICAL EXAMINATION GENERAL SURVEY: The patient is a 58-year-old male, well developed, well nourished, in no acute distress. VITAL SIGNS: Height 76 inches, weight 213 pounds, body mass index 25.9. Blood pressure 126/72, pulse 72 and regular, respiratory rate 18, temperature 97.5 tympanic. HEENT: Benign. NECK: Supple. No cervical lymphadenopathy. No carotid bruits. BACK: No CVA tenderness. LUNGS: Breath sounds bilaterally clear and equal. HEART: Regular rate and rhythm. No murmurs or rubs appreciated. ABDOMEN: Active bowel sounds. Soft and nondistended. No obvious masses. Mild left lower quadrant tenderness with deep palpation. No guarding. No organomegaly. No evidence of ventral hernia. GENITALIA EXAM: Deferred. RECTAL EXAM: Deferred. EXTREMITIES: Warm without edema or skin ulcerations. NEUROLOGIC: Alert and oriented x3. Steady gait. SKIN: Warm, dry, intact. IMPRESSION: Recurrent diverticulitis without perforation. PLAN: AA admission to Dr. Hudson' service on 03/10/19, for laparoscopic sigmoid colectomy. The patient will take a bowel cleansing prep on the day before surgery consisting of clear liquids, CoLyte laxative, neomycin and metronidazole. SUNNY ZEPEDA, LAND LEASING EXAMINER [id number]/[facility] #: [id number] HERNANDEZ
[~2019-03-10 05:45] MED LIST changes: -Buffered Lidocaine 0.9% SYRIN* 5 ML/SYR SYRINGE INTRADERM ONE; -Buffered Lidocaine 0.9% SYRIN* 5 ML/SYR SYRINGE ONE; +Buffered Lidocaine 1% SYRIN* 1 ML/SYRINGE INTRADERM ONE; -Bupivacaine 0.5% SDV PF* 30ML VIAL ONE; -DiMENhydriNATE IV* 50 MG/ML VIAL IV PUSH PRN; +ERTApenem(*) 1 GM in NS 0.9% 50 ML* 50 ML IVPB SCH; -HYDROcodone/ACETAMIN 5-325 MG* 1 TAB PO PRN; -Lidocaine 2% PF * 5 ML VIAL ONE; -Lidocaine 2% PF* 10 ML AMP ONE; -Midazolam* 1 MG/ML 5 ML VIAL (5 MG) ONE; -Morphine VIAL* 10 MG/ML 1 ML VIAL ONE; -Naloxone* 0.4 MG/ML 1 ML VIAL IV PRN; -Ondansetron INJ* 2 MG/ML VIAL ONE; -Propofol* 10 MG/ML 20 ML BTL IV PUSH ONE; -ceFAZolin 2 GM PREMIX in ORs 2 GM/50 ML BAG IVPB ONE; -fentaNYL* 50 MCG/ML 2 ML VIAL (100 MCG VIAL) IV PRN; -fentaNYL* 50 MCG/ML 2 ML VIAL (100 MCG VIAL) ONE; -oxyCODONE TAB* 5 MG TAB PO PRN
[2019-03-10] MEDS ORDERED: Lactated Ringers 1000 ML Bag* 1,000 ML IV SCH (06:00)
[2019-03-10] MEDS ORDERED: Dexamethasone IV* 4 MG/ML 1 ML (4 MG) IV SLOW PU ONE (06:00)
[2019-03-10] MEDS ORDERED: Famotidine IV* 10 MG/ML 2 ML (20 mg) IV ONE (06:00)
[2019-03-10] MEDS ORDERED: Famotidine IV* 10 MG/ML 2 ML (20 mg) ONE (06:06)
[2019-03-10] MEDS ORDERED: Heparin VIAL(*) 5000 UNITS/ML VIAL (FIVE THOUSAND) ONE (06:06)
[2019-03-10] MEDS ORDERED: Dexamethasone IV* 4 MG/ML 1 ML (4 MG) ONE (06:06)
[2019-03-10] MEDS ORDERED: Bupivacaine 0.25% EPI 200,000* 30 ML SDV ONE (07:13)
[2019-03-10] MEDS ORDERED: fentaNYL* 50 MCG/ML 5 ML VIAL (250 MCG VIAL) ONE (07:24)
[2019-03-10] MEDS ORDERED: Midazolam* 1 MG/ML 5 ML VIAL (5 MG) ONE (07:24)
[2019-03-10] MEDS ORDERED: Atracurium* 10 MG/ML 10 ML VIAL ONE (07:24)
[2019-03-10] MEDS ORDERED: Ketorolac INJ* 30 MG/ML 1 ML VIAL ONE (07:25)
[2019-03-10] MEDS ORDERED: Ondansetron INJ* 2 MG/ML VIAL ONE (07:25)
[2019-03-10] MEDS ORDERED: Propofol* 10 MG/ML 20 ML BTL ONE (07:25)
[2019-03-10] MEDS ORDERED: EPHEDrine (Pressors)* 50 MG/ML VIAL ONE (07:57)
[2019-03-10] MEDS ORDERED: Phenylephrine 40 MCG/ML SYRINGE ONE (07:59)
[2019-03-10] MEDS ORDERED: Glycopyrrolate IV* 0.2 MG/ML 1 ML VIAL ONE (08:01)
[2019-03-10] MEDS ORDERED: Atropine 1MG/ML INJ* 1 ML VIAL ONE (08:29)
[2019-03-10] MEDS ORDERED: DiMENhydriNATE IV* 50 MG/ML VIAL IV PUSH PRN (09:25)
[2019-03-10] MEDS ORDERED: HYDROmorphone INJ1* 1 MG/ML SYRINGE IV PRN (09:25)
[2019-03-10] MEDS ORDERED: Ondansetron INJ* 2 MG/ML VIAL IV PRN (09:25)
[2019-03-10] MEDS ORDERED: Naloxone* 0.4 MG/ML 1 ML VIAL IV PRN (09:25)
[2019-03-10] MEDS ORDERED: Scopolamine 1.5 mg* PATCH TRANSDERM PRN (09:25)
[2019-03-10] MEDS ORDERED: fentaNYL* 50 MCG/ML 2 ML VIAL (100 MCG VIAL) ONE ×3 (09:40→11:50)
[2019-03-10] MEDS ORDERED: DiMENhydriNATE IV* 50 MG/ML VIAL ONE (11:50)
[2019-03-10] MEDS: fentaNYL* 50 MCG/ML 2 ML VIAL (100 MCG VIAL) IV PRN ×2 (11:55→12:02)
[2019-03-10] MEDS ORDERED: ALPRAZolam TAB* 0.25 MG PO PRN (12:05)
[2019-03-10] MEDS ORDERED: Azelastine 0.15% NASAL(NF) 30 ML BTL BOTH NARES PRN (12:05)
--- NOTE | 2019-03-10 12:11 | BRIEFOPN ---
Brief Operative Note - Operation Details Pre-Op Diagnosis: diverticular disease of colon Post-Op Diagnosis: same Procedures: lap sigmoid colectomy Surgeon(s)/Proceduralists: SURGEON: Becca. ASSIST: Kim Anesthesia: WALE Peter Estimated Blood Loss: 100ml Findings: as above Specimen(s)/Culture(s) Description: sigmoid colon Complications: none
[2019-03-10] MEDS: HYDROmorphone INJ1* 1 MG/ML SYRINGE IV SLOW PU PRN ×3 (13:19→20:27)
[2019-03-10] MEDS: Lactated Ringers 1000 ML Bag* 1,000 ML IV SCH ×2 (13:30→21:59)
[2019-03-10] MEDS: Heparin VIAL(*) 5000 UNITS/ML VIAL (FIVE THOUSAND) SUBCUT SCH ×2 (14:31→22:00)
[2019-03-10] MEDS: Sertraline* 50 MG TAB PO SCH (18:12)
[2019-03-10] MEDS: traZODone TAB* 50 MG TAB PO SCH (20:30)
[2019-03-11] MEDS: HYDROmorphone INJ1* 1 MG/ML SYRINGE IV SLOW PU PRN ×9 (03:18→23:50)
[2019-03-11] MEDS: Heparin VIAL(*) 5000 UNITS/ML VIAL (FIVE THOUSAND) SUBCUT SCH ×3 (05:31→21:28)
[2019-03-11] MEDS: Lactated Ringers 1000 ML Bag* 1,000 ML IV SCH ×3 (06:15→23:22)
[2019-03-11 06:38] LABS: ABS Lymphocytes 0.6 10^3/ul (1.0-4.8); ABS Monocytes 0.9 10^3/ul (0-0.8); ABS Neutrophils 8.5 10^3/ul (1.5-7.7); Hematocrit 35 % (42-52); Hemoglobin 12.1 g/dL (14.0-18.0); Lymphocyte % 6.1 %; Mean Corpuscular HGB Conc 35 g/dL (31-36); Mean Corpuscular Hemoglobin 32 pg (27-31); Mean Corpuscular Volume 91 fL (80-94); Mean Platelet Volume 8.7 fL (7.4-10.4); Platelet Count 201 10^3/uL (150-450); Red Blood Count 3.82 10^6 /uL (4.18-5.48); Red Cell Distribution Width 15 % (10-15)
[2019-03-11 07:03] LABS: BUN/Creatinine Ratio 15.7 (8-20); Calcium 8.7 mg/dL (8.6-10.3); EGFR Non-African American 65.3 (>60); Potassium 4.1 mmol/L (3.5-5.0)
[2019-03-11] MEDS: Metoprolol Succinate XL TAB* 25 MG PO SCH ×2 (09:20→09:42)
[2019-03-11] MEDS: Aspirin EC TAB* 81 MG TAB.EC PO SCH (09:20)
[2019-03-11] MEDS: Montelukast Sodium TAB* 10 MG PO SCH (09:20)
--- NOTE | 2019-03-11 09:52 | PN ---
Progress Note - Progress Note Date of Service: 03/11/19 SOAP: Subjective: Pain is controlled. No N/V/flatus. No CP/SOB. Findings at surgery discussed. Objective: Vital Signs Temp 98.4 F 03/11/19 07:18 Pulse 53 03/11/19 07:18 Resp 16 03/11/19 09:40 BP 104/61 03/11/19 07:18 Pulse Ox 95 03/11/19 07:18 Gen: NAD Lungs: CTA B Heart: bradycardic, regular. Abd: dressings intact; softly distended; tender incisions; no BS. Ext: warm Intake & Output 03/10/19 03/11/19 03/11/19 18:59 06:59 18:59 Intake Total 1610 1620 Output Total 300 500 Balance 1310 1120 Intake: IV Fluids 1600 990 LR 1600 990 Oral 10 630 Output: Ragland 300 500 Assessment: POD#1 s/p lap sigmoid colectomy. Doing well. Plan: Clears. Hold metoprolol for HR<60. Ambulate. D/C ragland. DVT prophylaxis. Await GI fct.
--- NOTE | 2019-03-11 10:35 | OP ---
CC: Dulce Tobin MD; Serge Toribio MD * DATE OF OPERATION: 03/10/19 - ROOM #332 DATE OF : 60 SURGEON: Alexandre Hudson MD [employer] AGENT: Ezra Alvarez MD ANESTHESIOLOGIST: Bam Peter MD ANESTHESIA: General endotracheal. PRE-OP DIAGNOSIS: Diverticular disease of the colon. POST-OP DIAGNOSIS: Diverticular disease of the colon. OPERATIVE PROCEDURE: Laparoscopic sigmoid colectomy. ESTIMATED BLOOD LOSS: 100 mL. IV FLUIDS: Crystalloid. SPECIMEN: Sigmoid colon. DRAINS: None. COMPLICATIONS: None. COUNTS: Instrument, needle, sponge counts correct. DESCRIPTION OF PROCEDURE: The patient was brought to the operating room and placed on the table supine. Sequential compression devices were in place in both lower extremities. General anesthesia was administered. A Mac catheter was placed. The patient was positioned split-leg on the operating table. After appropriate positioning, padding, and intravenous antibiotics were administered , he was prepped and draped in the usual sterile fashion and a time-out was performed. Local anesthetic was infiltrated into the skin and soft tissue prior to making each incision. Entry to the abdomen was through an infraumbilical, vertical incision created using an open technique to access the peritoneal cavity and a 5 -mm trocar placed. Carbon dioxide was insufflated to a pressure of 15 mmHg and a 30-degree 5-mm laparoscope was introduced. Under direct visualization, 5-mm trocars were placed in the right lower quadrant, suprapubic midline, and left lower quadrant. Eventually, the right lower quadrant 5-mm trocar was up sized to a 12-mm trocar. Inspection revealed evidence of recurrent diverticulitis of the sigmoid colon with adhesions to the left pelvic side wall and thickened appearance to the colon and the mesentery. The mobilization proceeded along the white line of Toldt at the pelvic brim proceeding in a proximal direction to mobilize the splenic flexure. Dissection proceeded distally and due to the adhesions in this area, it was elected to place a hand port in a periumbilical position. The skin incision was extended to 8 cm and then after extending the incision, Devan -type retractor was placed and GelPort placed over this. Pneumo-peritoneum was reestablished and mobilization of the sigmoid was completed to the midline. The left ureter was identified and preserved. A window was created in the mesentery at the top of the rectum and the bowel transected with the EndoGIA stapler with a purple 60 mm cartridge. The mesentery was then divided using a combination of LigaSure and ALYSON stapler with hernandez cartridges staying close to the bowel in order to resect the diseased portion of intestine. The bowel was then exteriorized to the midline incision and the proximal margin of resection was taken in the descending colon. The colon proximally was sized for 28 mm EEA stapler and was placed into the lumen and sutured in place using a 2-0 Prolene whipstitch fashion. The bowel was returned to the abdominal cavity and then an EEA stapler was introduced through the rectum. There was anastomosis performed anterior to the distal staple line leaving about a 2-cm margin between the staple line and the anastomosis. After completing the anastomosis, a bubble leak test was performed and no leak was identified. Hemostasis was assured. The 12 mm right lower quadrant port site was then closed with 0 Vicryl using the Endoclose. Remaining ports removed under direct visualization and carbon dioxide was released. The midline wound was run closed with #1 Vicryl. Subcutaneous tissues were irrigated and then skin incisions were closed with garth. The patient tolerated the procedure well. He was extubated and transferred to the Recovery in stable condition. [id number]/[facility] #: [id number] HERNANDEZ
[2019-03-11] MEDS: Sertraline* 50 MG TAB PO SCH (18:09)
[2019-03-11] MEDS: traZODone TAB* 50 MG TAB PO SCH (20:47)
[2019-03-12] MEDS: HYDROmorphone INJ1* 1 MG/ML SYRINGE IV SLOW PU PRN (05:31)
[2019-03-12] MEDS: Ondansetron INJ* 2 MG/ML VIAL IV PRN ×2 (05:36→12:01)
[2019-03-12] MEDS: Heparin VIAL(*) 5000 UNITS/ML VIAL (FIVE THOUSAND) SUBCUT SCH ×3 (05:52→21:49)
[2019-03-12] MEDS: Lactated Ringers 1000 ML Bag* 1,000 ML IV SCH (08:02)
[2019-03-12] MEDS ORDERED: Acetaminophen TAB* 325 MG PO PRN (08:14)
[2019-03-12] MEDS: Metoprolol Succinate XL TAB* 25 MG PO SCH (08:43)
[2019-03-12] MEDS: oxyCODONE/Acetamin 5/325 MG* TAB PO PRN ×2 (08:43→21:55)
[2019-03-12] MEDS: Aspirin EC TAB* 81 MG TAB.EC PO SCH (08:43)
[2019-03-12] MEDS: Montelukast Sodium TAB* 10 MG PO SCH (08:43)
[2019-03-12] MEDS: Sertraline* 50 MG TAB PO SCH (17:47)
[2019-03-12] MEDS: traZODone TAB* 50 MG TAB PO SCH (23:43)
[2019-03-13] MEDS: Heparin VIAL(*) 5000 UNITS/ML VIAL (FIVE THOUSAND) SUBCUT SCH (05:45)
[2019-03-13] MEDS ORDERED: Ibuprofen TAB* 600 MG PO PRN (08:24)
--- NOTE | 2019-03-13 08:30 | PN ---
Progress Note - Progress Note Date of Service: 03/13/19 SOAP: Subjective: Passing flatus. Percocet not that effective and he prefers to use ibuprofen/ tylenol. Walking in halls. No leg pain/CP/SOB. Objective: Vital Signs Temp 99.6 F 03/13/19 07:34 Pulse 54 03/13/19 07:34 Resp 16 03/13/19 07:34 BP 142/79 03/13/19 07:34 Pulse Ox 98 03/13/19 07:34 Gen: NAD Abd: incis c/d/i; no erythema; soft; tender incisions. Intake & Output 03/12/19 03/13/19 03/13/19 18:59 06:59 18:59 Intake Total 1630 370 Output Total 900 1600 Balance 730 -1230 Intake: IV Fluids 950 LR 950 Oral 680 370 Output: Urine 900 1600 Other: Estimated Void Medium # Bowel Movements 2 0 Estimated Stool Amount Small Small # Voids 1 Pathology: Acute/chronic divericulitis. Assessment: POD#3 s/p lap sigmoid. Doing well. Plan: Discharge home. RTO 7-10 days. Meds reviewed.
[2019-03-13] MEDS: Aspirin EC TAB* 81 MG TAB.EC PO SCH (09:26)
[2019-03-13] MEDS: Metoprolol Succinate XL TAB* 25 MG PO SCH (09:26)
[2019-03-13] MEDS: Montelukast Sodium TAB* 10 MG PO SCH (09:26)
[2019-03-13 12:12] VITALS: BP 148/92
--- NOTE | 2019-04-01 13:08 | DS ---
CC: Dulce Tobin MD * DISCHARGE SUMMARY: DATE OF ADMISSION: 03/10/19 DATE OF DISCHARGE: 03/13/19 DISCHARGE DIAGNOSES: 1. Diverticular disease of sigmoid colon, recurrent. 2. Hypertension. 3. History of pulmonary embolism. 4. History of atrial fibrillation. 5. Gastroesophageal reflux disease. 6. Depression. 7. Anxiety. PROCEDURE: Laparoscopic sigmoid colectomy on 03/10/19. HOSPITAL COURSE: This is a 58-year-old gentleman who was admitted for an elective laparoscopic sigmoid colectomy due to recurrent episodes of diverticulitis. He was admitted on 03/10/19 and went to the operating room the same day. Surgery was uneventful. Please refer to the operative report. Postoperatively, the patient transferred to surgical floor and he was advanced to clear liquids the following day. Mac catheter was removed. He continued to receive DVT prophylaxis in the form of heparin injection subcutaneously and sequential compression devices on both lower extremities. Postoperative day 3, he was passing flatus, tolerating a diet, was not requiring any intravenous medications. He had no wound issues and was ambulating without difficulty. He was felt to be appropriate for discharge. His final pathology revealed diverticulosis with acute and chronic diverticulitis. No additional tests were pending. CONDITION: Stable. DISPOSITION: Home. Postprocedural instructions were provided to the patient and he was asked to follow up in the [facility] office as an outpatient. [id number]/[facility] #: [id number] MTDD
== END 2019-03-13 12:17 | disposition home or self-care (01) | DRG 221 ==
LOC: AA 05:45 → SSU 11:57
PROVIDERS: ADMIT Surgery; ATTEND Surgery
PROC: 0DTN4ZZ Resection of Sigmoid Colon, Percutaneous Endoscopic Approach (ICD-10-PCS; principal; 2019-03-10 07:30)
DX: K57.32 Diverticulitis of large intestine without perforation or abscess without bleeding (principal); I48.91 Unspecified atrial fibrillation; I10 Essential (primary) hypertension; K21.9 Gastro-esophageal reflux disease without esophagitis; F41.9 Anxiety disorder, unspecified; Z88.1 Allergy status to other antibiotic agents; Z91.041 Radiographic dye allergy status; Z91.013 Allergy to seafood; Z86.711 Personal history of pulmonary embolism; Z86.718 Personal history of other venous thrombosis and embolism; Z83.3 Family history of diabetes mellitus; Z82.49 Family history of ischemic heart disease and other diseases of the circulatory system; Z82.3 Family history of stroke; Z80.8 Family history of malignant neoplasm of other organs or systems
CPT/HCPCS: 36415; 80048; 85025; 88307; A9270-GY; C1776; J0461; J1100; J1170; J1240; J1335; J1644; J1885; J2250; J2405; J2704; J3010

== ENCOUNTER 2019-04-27 11:47 | Day surgery (SDC) | payer BC ==
[~2019-04-27 11:47] MED LIST changes: +Dexamethasone IV* 4 MG/ML 1 ML (4 MG) IV SLOW PU ONE; +Dexamethasone IV* 4 MG/ML 1 ML (4 MG) ONE; -ERTApenem(*) 1 GM in NS 0.9% 50 ML* 50 ML IVPB SCH; +Famotidine IV* 10 MG/ML 2 ML (20 mg) IV ONE; +Famotidine IV* 10 MG/ML 2 ML (20 mg) ONE; +Lactated Ringers 1000 ML Bag* 1,000 ML IV SCH; +ceFAZolin 2 GM PREMIX in ORs 2 GM/50 ML BAG ONE
[2019-04-27] MEDS ORDERED: oxyCODONE/Acetamin 5/325 MG* TAB PO PRN (12:56)
[2019-04-27] MEDS ORDERED: DiMENhydriNATE IV* 50 MG/ML VIAL IV PUSH PRN (12:56)
[2019-04-27] MEDS ORDERED: Ketorolac INJ* 30 MG/ML 1 ML VIAL IV PRN (12:56)
[2019-04-27] MEDS ORDERED: HYDROcodone/ACETAMIN 5-325 MG* 1 TAB PO PRN (12:56)
[2019-04-27] MEDS ORDERED: Naloxone* 0.4 MG/ML 1 ML VIAL IV PRN (12:56)
[2019-04-27] MEDS ORDERED: fentaNYL* 50 MCG/ML 2 ML VIAL (100 MCG VIAL) IV PRN (12:56)
[2019-04-27] MEDS ORDERED: fentaNYL* 50 MCG/ML 2 ML VIAL (100 MCG VIAL) ONE (13:01)
[2019-04-27] MEDS ORDERED: Midazolam* 1 MG/ML 5 ML VIAL (5 MG) ONE (13:01)
[2019-04-27] MEDS ORDERED: Bupivacaine 0.5%* 50 ML MDV VIAL ONE (13:07)
[2019-04-27] MEDS ORDERED: Propofol* 10 MG/ML 20 ML BTL ONE (13:09)
[2019-04-27] MEDS ORDERED: Lidocaine 2% PF * 5 ML VIAL ONE (13:09)
[2019-04-27] MEDS ORDERED: EPHEDrine (Pressors)* 50 MG/ML VIAL ONE (13:25)
[2019-04-27] MEDS ORDERED: Succinylcholine* 20 MG/ML 10 ML VIAL ONE (13:40)
[2019-04-27] MEDS ORDERED: Phenylephrine 40 MCG/ML SYRINGE ONE (13:45)
[2019-04-27] MEDS ORDERED: Ondansetron INJ* 2 MG/ML VIAL ONE (13:47)
[2019-04-27] MEDS ORDERED: Ketorolac INJ* 30 MG/ML 1 ML VIAL ONE (14:32)
[2019-04-27 15:26] VITALS: BP 156/89
--- NOTE | 2019-04-27 21:37 | OP ---
DATE OF OPERATION: 04/27/19 - [facility] DATE OF : 60 SURGEON: Claude Nguyen MD TELE RN: JENNY Shah PRE-OP DIAGNOSIS: Recurrent subluxation of right peroneal tendons. POST-OP DIAGNOSIS: Recurrent subluxation of right peroneal tendons. OPERATIVE PROCEDURE: Exploration of peroneal sheath with groove deepening. DESCRIPTION OF PROCEDURE: The patient was taken to the operating room where we made a longitudinal incision over the distal fibula incising directly off the posterior fibular border to visualize the peroneal sheath. The groove was very shallow and so, deepening was performed. This consisted of an osteotomy made with a microsagittal saw directly off the junction of the lateral posterior cortex, and with a bone tamp we were able to drive the posterior cortex anteriorly, thus deepening the groove through bone. Sutures were performed using #1 Vicryl, grabbing the retinaculum with the peroneal tendons intact and in place, bringing the retinaculum down to the edge of the cut fibula and inverting it just deep to the osteotomy. The tendons appeared to be intact prior to this maneuver. We then irrigated the soft tissues closing with 3-0 Monocryl, garth for the skin, and compression dressing plaster splint applied. [id number]/[facility] #: [id number] [facility]
--- NOTE | 2019-06-04 15:55 | HP ---
HISTORY AND PHYSICAL: DATE OF ADMISSION: 04/27/2019 HISTORY OF PRESENT ILLNESS: Gordo Land is a pleasant 58-year-old gentleman followed along for dislocating peroneal tendons right side. The pain has not improved despite some boot immobilization and he has constant dislocation noted. He is scheduled to have a repair of the retinaculum of his right peroneal tendons. PAST MEDICAL HISTORY: He has essential hypertension, aortic ectasia and AFib. MEDICATIONS: 1. Aspirin 81 mg per day. 2. Montelukast 10 mg per day. 3. Sertraline 100 mg per day. 4. Alprazolam 0.25 half to one tablet as needed. 5. Metoprolol 25 mg per day. 6. Trazodone 50 mg per day. ALLERGIES: He has an allergy to BACTRIM, IODINE. 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 He lives with the spouse. He is nonsmoker. REVIEW OF SYSTEMS: Negative for fevers, chills, headache, chest pain, shortness of breath, abdominal distress, neurological issues, dizziness, lightheadedness, depression, and anxiety. PHYSICAL EXAMINATION GENERAL APPEARANCE: Shows him to be 76 inches tall, 217 pounds, normotensive, in no acute distress. Alert and oriented, appropriate mood. CHEST: Shows clear lung encarnacion in all 4 quadrants without wheezing or rales noted. CARDIAC: Shows regular rate. No extra sounds noted. ABDOMEN: Flat, nontender. GENITOURINARY: Deferred NEUROLOGICAL: Deferred. EXTREMITY: Shows him to have warm sensate right hindfoot with intact skin envelope. He has in and out subluxation of the peroneal tendons around the fibula, some slight tenderness over the tendons but he has intact eversion strength. IMPRESSION: Dislocating right peroneal tendons. PLAN: Plan for the patient will be elective repair of the retinaculum right peroneal tendons. [id number]/[facility] #: [id number] [facility]
== END 2019-04-27 15:48 | disposition home or self-care (01) ==
LOC: OR 11:47
PROVIDERS: ATTEND Orthopaedic Surgery
DX: M25.371 Other instability, right ankle (principal); M76.71 Peroneal tendinitis, right leg; I10 Essential (primary) hypertension; I48.91 Unspecified atrial fibrillation; F41.8 Other specified anxiety disorders; G47.33 Obstructive sleep apnea (adult) (pediatric); Z86.718 Personal history of other venous thrombosis and embolism; Z79.82 Long term (current) use of aspirin; I71.2 Thoracic aortic aneurysm, without rupture
CPT/HCPCS: J0330; J0690; J1100; J1885; J2250; J2405; J2704; J3010; J3490

== ENCOUNTER 2019-10-12 06:32 | Day surgery (SDC) | payer BC ==
[~2019-10-12 06:32] MED LIST changes: -ceFAZolin 2 GM PREMIX in ORs 2 GM/50 ML BAG ONE
[2019-10-12] MEDS ORDERED: ceFAZolin 2 GM PREMIX in ORs 2 GM/50 ML BAG ONE (06:36)
[2019-10-12] MEDS ORDERED: fentaNYL* 50 MCG/ML 2 ML VIAL (100 MCG VIAL) ONE ×3 (07:07→10:21)
[2019-10-12] MEDS ORDERED: Midazolam* 1 MG/ML 5 ML VIAL (5 MG) ONE (07:07)
[2019-10-12] MEDS ORDERED: Chloroprocaine 2%* 20 ML VIAL ONE (07:19)
[2019-10-12] MEDS ORDERED: Bupivacaine 0.25% SDV* 30 ML ONE (07:20)
[2019-10-12] MEDS ORDERED: Naloxone* 0.4 MG/ML 1 ML VIAL IV PRN (07:22)
[2019-10-12] MEDS ORDERED: Ketorolac INJ* 30 MG/ML 1 ML VIAL IV PRN (07:22)
[2019-10-12] MEDS ORDERED: oxyCODONE/Acetamin 5/325 MG* TAB PO PRN (07:22)
[2019-10-12] MEDS ORDERED: HYDROcodone/ACETAMIN 5-325 MG* 1 TAB PO PRN (07:22)
[2019-10-12] MEDS ORDERED: Ondansetron INJ* 2 MG/ML VIAL IV PRN (07:22)
[2019-10-12] MEDS ORDERED: Lidocaine 2% PF * 5 ML VIAL ONE (07:58)
[2019-10-12] MEDS ORDERED: Propofol* 10 MG/ML 20 ML BTL ONE ×3 (07:58→08:52)
[2019-10-12] MEDS ORDERED: KETAMINE HCL* 50 MG/ML 10 ML VIAL ONE (08:04)
[2019-10-12] MEDS ORDERED: Ketorolac INJ* 30 MG/ML 1 ML VIAL ONE (10:15)
[2019-10-12] MEDS: fentaNYL* 50 MCG/ML 2 ML VIAL (100 MCG VIAL) IV PRN ×2 (10:22→10:59)
[2019-10-12] MEDS ORDERED: traMADol TAB* 50 MG ONE (10:54)
[2019-10-12 12:08] VITALS: BP 138/86
--- NOTE | 2019-10-12 12:20 | OP ---
DATE OF OPERATION: 10/12/19 - [facility] DATE OF : 60 SURGEON: Claude Nguyen MD NET MAKER: Nolan Veliz PA-C PRE-OP DIAGNOSIS: Progressive tear of peroneus brevis and longus tendons. POST-OP DIAGNOSIS: Progressive tear of peroneus brevis and longus tendons. OPERATIVE PROCEDURE: Debridement right peroneus brevis and longus tendons, tenodesis and repair of the retinaculum. DESCRIPTION OF PROCEDURE: The patient was taken to the operating room where a lateral longitudinal incision was made over the distal fibula angling toward the sinus tarsi. The retinaculum was reflected directly off the posterior lateral border of the fibula to allow visualization of the tendons within the sheath. Both the brevis and longus tendons were significantly synovitic and the longus tendon was attenuated a couple centimeters above the tip of the fibula, although intact, some of the fibers had torn and retracted. Both of these tendons were debrided longitudinally with a 15-blade back to good healthy tissue, and then a tenodesis performed between the two tendons with a running 3- 0 Monocryl suture. We deepened the groove again with a bone tamp without disrupting the surface periosteum. Through-bone sutures of #1 Vicryl used to repair the retinaculum after irrigating thoroughly. We also removed the peroneal tubercle distally. Closure of 2-0 Monocryl for the subcu and garth followed with a compression dressing plaster splint. [id number]/[facility] #: [id number] HERNANDEZ
== END 2019-10-12 12:04 | disposition home or self-care (01) ==
LOC: OREAST 06:32
PROVIDERS: ATTEND Orthopaedic Surgery
DX: M76.71 Peroneal tendinitis, right leg (principal); M67.471 Ganglion, right ankle and foot; I48.0 Paroxysmal atrial fibrillation; I10 Essential (primary) hypertension; I45.10 Unspecified right bundle-branch block; Z86.718 Personal history of other venous thrombosis and embolism; Z86.711 Personal history of pulmonary embolism; G47.33 Obstructive sleep apnea (adult) (pediatric); I77.810 Thoracic aortic ectasia
CPT/HCPCS: 88304; A9270-GY; C1776; J0690; J1100; J1885; J2250; J2400; J2704; J3010; J3490